=== PATIENT | female | born 1985 | race Caucasian/White ===

== ENCOUNTER 2016-06-11 12:54 | Inpatient (IN) ==
--- NOTE | 2016-06-11 13:09 | Emergency Department Note ---
Disposition Clinical Impression: Atrial fibrillation Disposition: Admitted As Inpatient Condition: Good General Adult HPI - General Chief complaint: ED Arrhythmia/Palpitations Stated complaint: chest pain Time Seen by Provider: 06/11/16 13:02 Source: patient Limitations: no limitations - History of Present Illness Pain Scale: 6 - Related Data Home Medications Medication Instructions Recorded Confirmed Pravastatin Sodium 80 mg PO QPM 12/02/14 06/11/16 GlyBURIDE 5 mg PO QAM 07/20/15 06/11/16 Pioglitazone [Actos] 45 mg PO QAM 07/20/15 06/11/16 Apixaban [Eliquis] 5 mg PO BID 01/01/16 06/11/16 Butalbital/Aspirin/Caffeine 1 cap PO DAILY PRN 01/29/16 06/11/16 [Fiorinal 50-325-40 mg Capsule] Hydrochlorothiazide 50 mg PO QAM 01/29/16 06/11/16 Diclofenac Sodium [Voltaren] 1 appl TP 2-3XD PRN 06/11/16 06/11/16 FLUoxetine HCl [PROzac] 20 mg PO DAILY 06/11/16 06/11/16 Fluticasone Propionate Nasal 100 mcg NS DAILY 06/11/16 06/11/16 [Flonase] Naproxen Sodium [Aleve] 220 mg PO Q12H PRN 06/11/16 06/11/16 Previous Rx's Medication Instructions Recorded Diltiazem CD (24hr) [Cardizem CD] 180 mg PO DAILY #90 cap.er.24h 01/30/16 Allergies Allergy/AdvReac Type Severity Reaction Status Date / Time citalopram [From Celexa] Allergy Hives Verified 05/25/16 05:25 Past Medical History - Past Medical History Medical history: Reports: atrial fibrillation, diabetes, hyperlipidemia, migraine, seizures, other Surgical history: Reports: appendectomy, splenectomy Psychiatric history: Reports: anxiety, depression 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 - Social History Smoking Status: Former smoker Smokeless Tobacco Status: No Alcohol use: Reports: none Drug use: Reports: none Physical Exam - General Limitations: no limitations General appearance: alert, in no apparent distress Course Vital Signs Temperature 98.1 F 06/11/16 13:04 Pulse Rate 172 06/11/16 13:04 Respiratory Rate 18 06/11/16 13:04 Blood Pressure 105/86 06/11/16 13:04 O2 Sat by Pulse Oximetry 98 06/11/16 13:04 Temperature 98.2 F 06/11/16 21:15 Pulse Rate 109 06/11/16 21:15 Respiratory Rate 16 06/11/16 21:15 Blood Pressure 127/71 06/11/16 21:15 O2 Sat by Pulse Oximetry 96 06/11/16 21:37 Oxygen Delivery Oxygen Delivery Room Air Medical Decision Making - Lab Data Result diagrams: 06/11/16 14:23 06/11/16 14:23 Lab Results 06/11/16 06/11/16 06/11/16 Range/Units 14:23 14:23 14:23 WBC 13.2 H (4.3-11.1) K/mcL RBC 5.18 H (3.82-4.97) M/mcL Hgb 14.1 (11.5-15.4) g/dL Hct 44.1 (35.3-44.9) % MCV 85.1 (83.0-100.0) fL MCH 27.2 L (28.0-33.3) pg MCHC 32.0 (31.6-35.5) g/dL RDW 14.1 (11.5-14.5) % Plt Count 622 H (140-400) K/mcL MPV 9.5 (9.4-12.4) fL Immature Gran % 0.4 (0-4) % Seg Neutrophils % 70.0 % Lymphocytes % 19.5 % Monocytes % 8.8 % Eosinophils % 0.8 % Basophils % 0.5 % Neutrophils # 9.3 H (1.6-8.9) K/mcL Lymphocytes # 2.6 (0.6-4.6) K/mcL Monocytes # 1.2 (0.0-1.3) K/mcL Eosinophils # 0.1 (0.0-0.6) K/mcL Basophils # 0.1 (0.0-0.2) K/mcL PT 14.2 H (9.4-12.1) Seconds INR 1.3 Sodium 136 (136-145) mEq/L Potassium 3.6 (3.5-4.5) mEq/L Chloride 102 (98-109) mEq/L Carbon Dioxide 24 (19-29) mEq/L BUN 8 (7-20) mg/dL Creatinine 0.64 (0.57-1.11) mg/dL Est GFR ( Amer) > 60 (> 60) Est GFR (Non-Af Amer) > 60 (> 60) BUN/Creatinine Ratio 13 (6-26) Glucose 171 H (70-99) mg/dL Calculated Osmolality 284 (280-300) Calcium 9.4 (8.6-10.8) mg/dL Total Bilirubin 0.3 (0.2-1.2) mg/dL AST 16 (5-34) Units/L ALT 19 (0-55) Units/L Alkaline Phosphatase 92 (38-126) Units/L Troponin I (0-0.03) ng/mL Serum Total Protein 7.6 (6.0-8.3) g/dL Albumin 3.0 L (3.5-5.0) g/dL Globulin 4.6 H (2.4-3.5) g/dL Albumin/Globulin Ratio 0.7 L (1.1-2.2) 06/11/16 Range/Units 14:23 WBC (4.3-11.1) K/mcL RBC (3.82-4.97) M/mcL Hgb (11.5-15.4) g/dL Hct (35.3-44.9) % MCV (83.0-100.0) fL MCH (28.0-33.3) pg MCHC (31.6-35.5) g/dL RDW (11.5-14.5) % Plt Count (140-400) K/mcL MPV (9.4-12.4) fL Immature Gran % (0-4) % Seg Neutrophils % % Lymphocytes % % Monocytes % % Eosinophils % % Basophils % % Neutrophils # (1.6-8.9) K/mcL Lymphocytes # (0.6-4.6) K/mcL Monocytes # (0.0-1.3) K/mcL Eosinophils # (0.0-0.6) K/mcL Basophils # (0.0-0.2) K/mcL PT (9.4-12.1) Seconds INR Sodium (136-145) mEq/L Potassium (3.5-4.5) mEq/L Chloride (98-109) mEq/L Carbon Dioxide (19-29) mEq/L BUN (7-20) mg/dL Creatinine (0.57-1.11) mg/dL Est GFR ( Amer) (> 60) Est GFR (Non-Af Amer) (> 60) BUN/Creatinine Ratio (6-26) Glucose (70-99) mg/dL Calculated Osmolality (280-300) Calcium (8.6-10.8) mg/dL Total Bilirubin (0.2-1.2) mg/dL AST (5-34) Units/L ALT (0-55) Units/L Alkaline Phosphatase (38-126) Units/L Troponin I 0.00 (0-0.03) ng/mL Serum Total Protein (6.0-8.3) g/dL Albumin (3.5-5.0) g/dL Globulin (2.4-3.5) g/dL Albumin/Globulin Ratio (1.1-2.2) Critical Care Time Critical Care Time: Yes Total Critical Care Time: 30 Attestation: Atrial fibrillation with rapid ventricular response requiring IV Cardizem drip Attestation Statement - Attestation Attestation: I examined this patient and my medical decision-making was reviewed with the GALVANIZER/PA/Advanced Practice Nurse/Resident Physician. I agree with the documented findings, disposition and treatment plan as described except to the extent set forth below. [id number] time provided Patient presents complaining of palpitations. She has a history of intermittent atrial fibrillation and she takes Eliquis. She sees Dr. Calderón from cardiology. Appears in no acute distress on exam
--- NOTE | 2016-06-11 13:14 | Emergency Department Note ---
Disposition Clinical Impression: Atrial fibrillation Qualifiers: Atrial fibrillation type: paroxysmal Qualified Code(s): I48.0 - Paroxysmal atrial fibrillation Disposition: Admitted As Inpatient Condition: Good General Adult HPI - General Stated complaint: chest pain Time Seen by Provider: 06/11/16 13:02 Source: patient Limitations: no limitations Nursing Notes Reviewed: Yes Vital Signs Reviewed: Yes - History of Present Illness HPI Narrative: Ms. Sherwood, a 30yo female, presents from home by POV with blood from bedside, chief complaint: Chest pain. Onset since her ED visit at this facility yesterday. Described as palpitations without pain per se. Past medical history significant paroxysmal atrial fibrillation. Anticoagulated on Eliquis, rate controlled on Cardizem. PMH: Paroxysmal A. fib, hypertension, hyperlipidemia, diabetes type 2. 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 Calderón Maure[facility] cardiology. Admits: Chest palpitations. Denies dyspnea, numbness or tingling, changes in vision, any unilateral or focal weakness, slurring of speech, difficulty chewing, difficulty swallowing. Pain Scale: 6 - Related Data Home Medications Medication Instructions Recorded Confirmed Pravastatin Sodium 80 mg PO QPM 12/02/14 06/11/16 GlyBURIDE 5 mg PO QAM 07/20/15 06/11/16 Pioglitazone [Actos] 45 mg PO QAM 07/20/15 06/11/16 Apixaban [Eliquis] 5 mg PO BID 01/01/16 06/11/16 Butalbital/Aspirin/Caffeine 1 cap PO DAILY PRN 01/29/16 06/11/16 [Fiorinal 50-325-40 mg Capsule] Hydrochlorothiazide 50 mg PO QAM 01/29/16 06/11/16 Diclofenac Sodium [Voltaren] 1 appl TP 2-3XD PRN 06/11/16 06/11/16 FLUoxetine HCl [PROzac] 20 mg PO DAILY 06/11/16 06/11/16 Fluticasone Propionate Nasal 100 mcg NS DAILY 06/11/16 06/11/16 [Flonase] Naproxen Sodium [Aleve] 220 mg PO Q12H PRN 06/11/16 06/11/16 Previous Rx's Medication Instructions Recorded Diltiazem CD (24hr) [Cardizem CD] 180 mg PO DAILY #90 cap.er.24h 01/30/16 Allergies Allergy/AdvReac Type Severity Reaction Status Date / Time citalopram [From Celexa] Allergy Hives Verified 05/25/16 05:25 All systems ED: reviewed and negative except as stated. 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 HEENT: No facial asymmetry. Head is normocephalic and atraumatic. Trachea midline. Cardiovascular: Heart regular rate and rhythm without clicks, rubs, gallops, or murmurs. No JVD. PMI nondisplaced. Bilateral radial and her cells pedis pulses graded 2+. Skin warm and dry. Respiratory: Symmetric chest rise with good respiratory effort. Bilateral breath sounds are clear without wheezing, crackles, or rhonchi. Abdomen: Obese. Bowel sounds present normoactive x-4 quadrants. Abdomen is soft, nondistended, and nontender. No organomegaly noted. Psych: Patient's affect is appropriate for situation. - General Limitations: no limitations General appearance: alert, in no apparent distress Course Course Narrative: Patient took her Cardizem 180 mg by mouth this morning. Patient is well-appearing and relaxing comfortably in bed. During my exam, she was in atrial fibrillation with her only reported symptom being palpitations. EKG demonstrates atrial fibrillation with RVR; rate of 160. We will give Cardizem bolus followed by Cardizem drip. Anticipate admission to hospitalist with cardiology following. Patient spontaneously converted shortly before 3 PM while on Cardizem drip at a rate of 5 milligrams per hour. Repeat EKG captured sinus rhythm with a rate of 98. Vital Signs Temperature 98.1 F 06/11/16 13:04 Pulse Rate 172 06/11/16 13:04 Respiratory Rate 18 06/11/16 13:04 Blood Pressure 105/86 06/11/16 13:04 O2 Sat by Pulse Oximetry 98 06/11/16 13:04 Temperature 98.1 F 06/11/16 16:54 Pulse Rate 103 06/11/16 16:54 Respiratory Rate 16 06/11/16 16:57 Blood Pressure 112/77 06/11/16 16:57 O2 Sat by Pulse Oximetry 95 06/11/16 16:54 Oxygen Delivery Oxygen Delivery Room Air Medical Decision Making - Medical Records Medical records reviewed: Yes I reviewed the patient's medical records. - Lab Data Result diagrams: 06/11/16 14:23 06/11/16 14:23 Lab Results 06/11/16 06/11/16 06/11/16 Range/Units 14:23 14:23 14:23 WBC 13.2 H (4.3-11.1) K/mcL RBC 5.18 H (3.82-4.97) M/mcL Hgb 14.1 (11.5-15.4) g/dL Hct 44.1 (35.3-44.9) % MCV 85.1 (83.0-100.0) fL MCH 27.2 L (28.0-33.3) pg MCHC 32.0 (31.6-35.5) g/dL RDW 14.1 (11.5-14.5) % Plt Count 622 H (140-400) K/mcL MPV 9.5 (9.4-12.4) fL Immature Gran % 0.4 (0-4) % Seg Neutrophils % 70.0 % Lymphocytes % 19.5 % Monocytes % 8.8 % Eosinophils % 0.8 % Basophils % 0.5 % Neutrophils # 9.3 H (1.6-8.9) K/mcL Lymphocytes # 2.6 (0.6-4.6) K/mcL Monocytes # 1.2 (0.0-1.3) K/mcL Eosinophils # 0.1 (0.0-0.6) K/mcL Basophils # 0.1 (0.0-0.2) K/mcL PT 14.2 H (9.4-12.1) Seconds INR 1.3 Sodium 136 (136-145) mEq/L Potassium 3.6 (3.5-4.5) mEq/L Chloride 102 (98-109) mEq/L Carbon Dioxide 24 (19-29) mEq/L BUN 8 (7-20) mg/dL Creatinine 0.64 (0.57-1.11) mg/dL Est GFR ( Amer) > 60 (> 60) Est GFR (Non-Af Amer) > 60 (> 60) BUN/Creatinine Ratio 13 (6-26) Glucose 171 H (70-99) mg/dL Calculated Osmolality 284 (280-300) Calcium 9.4 (8.6-10.8) mg/dL Total Bilirubin 0.3 (0.2-1.2) mg/dL AST 16 (5-34) Units/L ALT 19 (0-55) Units/L Alkaline Phosphatase 92 (38-126) Units/L Troponin I (0-0.03) ng/mL Serum Total Protein 7.6 (6.0-8.3) g/dL Albumin 3.0 L (3.5-5.0) g/dL Globulin 4.6 H (2.4-3.5) g/dL Albumin/Globulin Ratio 0.7 L (1.1-2.2) 06/11/16 Range/Units 14:23 WBC (4.3-11.1) K/mcL RBC (3.82-4.97) M/mcL Hgb (11.5-15.4) g/dL Hct (35.3-44.9) % MCV (83.0-100.0) fL MCH (28.0-33.3) pg MCHC (31.6-35.5) g/dL RDW (11.5-14.5) % Plt Count (140-400) K/mcL MPV (9.4-12.4) fL Immature Gran % (0-4) % Seg Neutrophils % % Lymphocytes % % Monocytes % % Eosinophils % % Basophils % % Neutrophils # (1.6-8.9) K/mcL Lymphocytes # (0.6-4.6) K/mcL Monocytes # (0.0-1.3) K/mcL Eosinophils # (0.0-0.6) K/mcL Basophils # (0.0-0.2) K/mcL PT (9.4-12.1) Seconds INR Sodium (136-145) mEq/L Potassium (3.5-4.5) mEq/L Chloride (98-109) mEq/L Carbon Dioxide (19-29) mEq/L BUN (7-20) mg/dL Creatinine (0.57-1.11) mg/dL Est GFR ( Amer) (> 60) Est GFR (Non-Af Amer) (> 60) BUN/Creatinine Ratio (6-26) Glucose (70-99) mg/dL Calculated Osmolality (280-300) Calcium (8.6-10.8) mg/dL Total Bilirubin (0.2-1.2) mg/dL AST (5-34) Units/L ALT (0-55) Units/L Alkaline Phosphatase (38-126) Units/L Troponin I 0.00 (0-0.03) ng/mL Serum Total Protein (6.0-8.3) g/dL Albumin (3.5-5.0) g/dL Globulin (2.4-3.5) g/dL Albumin/Globulin Ratio (1.1-2.2) - EKG Data EKG #1 EKG attestation: Yes I reviewed and interpreted this EKG. EKG results narrative: EKG dated 06/11/16 at 13:10 interpreted as atrial fibrillation with RVR; rate of 160. Compared to previous dated 05/25/2016 showing sinus rhythm. EKG #2 EKG attestation: Yes I reviewed and interpreted this EKG. EKG results narrative: EKG dated 06/11/16 at 14:54 interpreted as sinus rhythm with rate of 98. Normal intervals. Normal axis. Compared to previous EKG of today approximately 2 hours earlier shows atrial fibrillation with RVR. Patient has converted while on Cardizem drip.
[2016-06-11] MEDS ORDERED: 0.9 % Sodium Chloride 1,000 ML IVC ONE (13:18)
[2016-06-11 14:41] LABS: Basophils # 0.1 K/mcL (0.0-0.2); Basophils % 0.5 %; Eosinophils # 0.1 K/mcL (0.0-0.6); Eosinophils % 0.8 %; Hematocrit 44.1 % (35.3-44.9); Hemoglobin 14.1 g/dL (11.5-15.4); Immature Granulocytes % 0.4 % (0-4); Lymphocytes # 2.6 K/mcL (0.6-4.6); Lymphocytes % 19.5 %; Mean Corpuscular Hemoglobin 27.2 pg (28.0-33.3); Mean Corpuscular Volume 85.1 fL (83.0-100.0); Mean Platelet Volume 9.5 fL (9.4-12.4); Monocytes # 1.2 K/mcL (0.0-1.3); Monocytes % 8.8 %; Neutrophils # 9.3 K/mcL (1.6-8.9); Platelet Count 622 K/mcL (140-400); Red Blood Count 5.18 M/mcL (3.82-4.97); Red Cell Distribution Width 14.1 % (11.5-14.5)
[2016-06-11 14:47] LABS: INR 1.3; Prothrombin Time 14.2 Seconds (9.4-12.1)
[2016-06-11 14:53] LABS: Alanine Aminotransferase 19 Units/L (0-55); Albumin/Globulin Ratio 0.7 (1.1-2.2); Alkaline Phosphatase 92 Units/L (38-126); Aspartate Amino Transferase 16 Units/L (5-34); BUN/Creatinine Ratio 13 (6-26); Bilirubin,Total 0.3 mg/dL (0.2-1.2); Blood Urea Nitrogen 8 mg/dL (7-20); Calcium 9.4 mg/dL (8.6-10.8); Carbon Dioxide 24 mEq/L (19-29); Chloride 102 mEq/L (98-109); Globulin 4.6 g/dL (2.4-3.5); Glucose 171 mg/dL (70-99); Osmolality,Calculated 284 (280-300); Potassium 3.6 mEq/L (3.5-4.5); Sodium 136 mEq/L (136-145); Total Protein 7.6 g/dL (6.0-8.3); eGFR For African Americans > 60 (> 60); eGFR For Non-African Americans > 60 (> 60)
[2016-06-11] MEDS ORDERED: Acetaminophen 325 MG TABLET PO PRN (18:09)
[2016-06-11] MEDS ORDERED: Naloxone 0.4 MG/ML INJ IVP PRN (18:09)
[2016-06-11] MEDS ORDERED: Ondansetron 4 MG/2 ML VIAL IVP PRN (18:09)
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
[2016-06-11] MEDS ORDERED: *HR* Dextrose 50 % in Water (Syg) 50 ML SYRINGE IVP PRN (20:58)
[2016-06-11] MEDS ORDERED: D5% in Water 1,000 ML IV PRN (20:58)
[2016-06-11] MEDS ORDERED: Dextrose Gel 15 GM PO PRN ×2 (20:58)
[2016-06-12 06:13] LABS: Basophils # 0.1 K/mcL (0.0-0.2); Basophils % 0.8 %; Eosinophils # 0.2 K/mcL (0.0-0.6); Eosinophils % 1.5 %; Hematocrit 39.6 % (35.3-44.9); Hemoglobin 12.8 g/dL (11.5-15.4); Immature Granulocytes % 0.5 % (0-4); Lymphocytes # 2.8 K/mcL (0.6-4.6); Lymphocytes % 23.6 %; Mean Corpuscular HGB Conc 32.3 g/dL (31.6-35.5); Mean Corpuscular Hemoglobin 27.6 pg (28.0-33.3); Mean Corpuscular Volume 85.5 fL (83.0-100.0); Mean Platelet Volume 9.8 fL (9.4-12.4); Monocytes # 1.2 K/mcL (0.0-1.3); Monocytes % 10.2 %; Neutrophils # 7.6 K/mcL (1.6-8.9); Platelet Count 538 K/mcL (140-400); Red Blood Count 4.63 M/mcL (3.82-4.97); Red Cell Distribution Width 14.6 % (11.5-14.5); Segmented Neutrophils % 63.4 %
[2016-06-12 06:19] LABS: Hemoglobin A1C 8.5 %
[2016-06-12 06:24] LABS: BUN/Creatinine Ratio 15 (6-26); Blood Urea Nitrogen 11 mg/dL (7-20); Calcium 9.2 mg/dL (8.6-10.8); Carbon Dioxide 25 mEq/L (19-29); Chloride 99 mEq/L (98-109); Chol/HDL Ratio 6.4 (0-4.9); Cholesterol 204 mg/dL (< 200); Glucose 185 mg/dL (70-99); HDL Cholesterol 32 mg/dL (40-59); LDL Cholesterol,Calculated 151 mg/dL (0-99); Magnesium 1.2 mg/dL (1.6-2.6); Osmolality,Calculated 282 (280-300); Potassium 3.4 mEq/L (3.5-4.5); Sodium 134 mEq/L (136-145); Triglycerides 104 mg/dL (< 150); eGFR For African Americans > 60 (> 60); eGFR For Non-African Americans > 60 (> 60)
--- NOTE | 2016-06-12 08:42 | Cardiology Consult Note ---
<Brendon Dawn - Last Filed: 06/12/16 09:37> Date of Encounter: 06/12/16 Time of Encounter: 08:37 Assessment and Plan (1) Atrial fibrillation with RVR Current Visit: No Status: Acute Atrial fibrillation with RVR with HR up to 160 bpm. Now NSR after receiving IV cardizem bilus and IV gtt. Convert back to oral cardizem. Start 240 mg daily. Continue eliquis. We will have her follow with Dr. Osmin Dent to discuss ablation again. She is willing to re-consider. Discussion w patient/family: The assessment and plan as outlined above was discussed with the patient and/or family members who expressed understanding and agreement. All questions were answered. Thank you for involving us in the care of your patient. Please call with any questions. History of Present Illness Consult date: 06/12/16 Requesting physician: Isai Scott Consult reason: afib with RVR Chief complaint: Palpitations, chest discomfort, SOB History of present illness: Ms. Sherwood is a 30 year old female who presented yesterday with, palpitations, SOB and left uper chest discomfort starting at rest. She presented to the ER and was found to have atrial fibrillation with RVR. She was started on IV cardizem and converted to NSR. Symptoms were relieved once heart rate was controlled. Past medical history includes atrial fibrillation with RVR on eliquis, diabetes type II, and thrombocytosis from splenectomy. She follows with [place] [facility] and discussed ablation with Dr. Osmin Dent in the past. She declined previously. She denies missed doses of cardizem. C/o sinus congestion over past week. Past Med Surg Social Fam HX - Past Medical History Medical history: atrial fibrillation, diabetes, hyperlipidemia, migraine, seizures, other Psychiatric history: anxiety, depression - Past Surgical History Surgical History: appendectomy, splenectomy - Social History Smoking Status: Former smoker Smokeless Tobacco Status: No Alcohol use: none Drug use: none - Family History Mother Adopted: No Living Status: Still Living Hx Family Cardiac Disorders: Yes (HTN) Hx Family Endocrine Disorder: Yes (DM) Father Hx Family Cardiac Disorders: Yes (CHF) Brother Hx Family Cardiac Disorders: Yes (A. FIB) Hx Family Endocrine Disorder: Yes (DM) Medications and Allergies Pravastatin Sodium 80 mg PO QPM 12/02/14 [History] GlyBURIDE 5 mg PO QAM 07/20/15 [History] Pioglitazone [Actos] 45 mg PO QAM 07/20/15 [History] Apixaban [Eliquis] 5 mg PO BID 01/01/16 [History] Butalbital/Aspirin/Caffeine [Fiorinal 50-325-40 mg Capsule] 1 cap PO DAILY PRN 01/29/16 [History] Hydrochlorothiazide 50 mg PO QAM 01/29/16 [History] Diltiazem CD (24hr) [Cardizem CD] 180 mg PO DAILY #90 cap.er.24h 01/30/16 [Rx] Diclofenac Sodium [Voltaren] 1 appl TP 2-3XD PRN 06/11/16 [History] FLUoxetine HCl [PROzac] 20 mg PO DAILY 06/11/16 [History] Fluticasone Propionate Nasal [Flonase] 100 mcg NS DAILY 06/11/16 [History] Naproxen Sodium [Aleve] 220 mg PO Q12H PRN 06/11/16 [History] Allergies citalopram [From Celexa] Allergy (Verified 05/25/16 05:25) Hives All Systems Review: A 10-system review of systems was performed and is negative for pertinent findings except as documented above in the HPI. Physical Examination Vital Signs, Last 4 Hours Temp Pulse Resp BP Pulse Ox 06/12/16 07:45 97.9 F 95 16 98/65 94 L General: Conversant, No Apparent Distress, Other HEENT: Atraumatic, Normocephaly, Mucus Membranes Moist Neck: No JVD, Normal carotid pulses Cardiac: Reg Rate and Rhythm, Normal S1 and S2, No Murmur Lungs: Normal Breath Sounds, No Wheeze, Rales, Rhonchi Neuro: Alert and responsive, No focal deficits noted Abdomen: Soft, Non-Tender Skin: No rashes noted on visualized skin Musculoskeletal: No Chest Wall Tenderness Extremities: No Clubbing, No Cyanosis, No Edema, Normal Pulses Results 06/12/16 04:45 06/12/16 04:45 Lab Results 06/12/16 06/12/16 04:45 04:45 WBC 11.9 H Hgb 12.8 Hct 39.6 Plt Count 538 H Sodium 134 L Potassium 3.4 L Chloride 99 Carbon Dioxide 25 BUN 11 Creatinine 0.73 Glucose 185 H Calcium 9.2 Magnesium 1.2 L - Imaging and Cardiology Echo: report reviewed (01/30/16- EF 60-65%, no significant valvular disease, normal atrial size.) - EKG Interpretation EKG results cardiology: personally reviewed (ATrial fibrillation with RVR, HR 160 bpm, no ST changes.) Consult Discharge Plan - Plan Referrals: Racheal Vazquez CNP [Primary Care Provider] - 06/17/16 1:30 pm Osmin Dent MD [Partnered Physician] - 07/01/16 9:00 am <Larisa Pierson - Last Filed: 06/12/16 13:59> Date of Encounter: 06/12/16 Assessment and Plan Discussion w patient/family: The assessment and plan as outlined above was discussed with the patient and/or family members who expressed understanding and agreement. All questions were answered. Thank you for involving us in the care of your patient. Please call with any questions. History of Present Illness History of present illness: Ms. Sherwood is a 30 year old female All Systems Review: A 10-system review of systems was performed and is negative for pertinent findings except as documented above in the HPI. Results 06/12/16 04:45 06/12/16 04:45 - Attending Attestation I examined this patient and my medical decision-making was reviewed with the [employer] SUPERVISOR/PA/Advanced Practice Nurse/Resident Physician. I agree with the documented findings, disposition and treatment plan. Ms. Sherwood presents with AF RVR in setting of URI type symptoms. She has since converted back to NSR. She is maintained on eliquis as an outpatient. We will adjust her cardizem and have her follow up with her primary sustainable development policy analyst, Dr. Calderón. She denies possibility of . We will sign off. Please call with questions.
[2016-06-12] MEDS ORDERED: (Diclofenac Sodium [Voltaren] 1 APPL) TP PRN (09:13)
[2016-06-12] MEDS ORDERED: BUTALBITAL PO PRN (09:13)
[2016-06-12] MEDS ORDERED: ASPIRIN PO PRN (09:13)
[2016-06-12] MEDS ORDERED: CAFFEINE PO PRN (09:13)
[2016-06-12] MEDS: Diltiazem CD (24hr) 240 MG CAPSULE PO SCH (09:50)
[2016-06-12] MEDS: FLUoxetine 20 MG CAPSULE PO SCH (09:50)
[2016-06-12] MEDS: APIXABAN 5 MG TABLET PO SCH ×2 (09:51→21:48)
[2016-06-12] MEDS: Fluticasone Propionate Nasal 50 MCG/SPRAY BOTTLE NS SCH (09:51)
[2016-06-12] MEDS: Insulin LISPRO 300 UNITS/3 ML VIAL SQ SCH ×3 (09:53→17:07)
--- NOTE | 2016-06-12 17:06 | Internal Med Progress Note ---
Date of Encounter: 06/12/16 Time of Encounter: 09:00 - Assessment and plan (1) Paroxysmal atrial fibrillation with rapid ventricular response Current Visit: No Status: Acute Assessment and plan: Converted to NSR now. Continue cardizem for rate control and Eliquis for anticoagulation. F/U with cardio as outpatient. (2) Essential hypertension Current Visit: No Status: Chronic Assessment and plan: Stable, cont home med (3) Type 2 diabetes mellitus Current Visit: No Status: Chronic Assessment and plan: Cover by sliding scale. Qualifiers: Diabetes mellitus complication status: without complication Diabetes mellitus nursing home insulin use: without nursing home use Qualified Code(s): E11.9 - Type 2 diabetes mellitus without complications (4) DVT prophylaxis Current Visit: Yes Status: Acute Assessment and plan: Pt is young, encourage ambulating. Expect discharge soon, no anticoagulation. (5) Morbid obesity Current Visit: Yes Status: Acute Assessment and plan: Need lifestyle modification as outpatient. Qualifiers: Obesity type: due to excess calories Qualified Code(s): E66.01 - Morbid ( severe) obesity due to excess calories - Time Spent With Patient 25 - 35 minutes - Subjective Interval history: Pt is a 30 yoF admitted as A Fib with RVR. Her past medical Hx is significant for PAF. Pt was seen and examined. Denies chest pain, SOB, palpitation. HR converted to NSR. HR 90-100. Cardizem drip stopped, change to cardizem CD 240mg po qd. Expect d/c tomorrow if HR and BP stable. Cardiology consult appreciated. - Constitutional Vitals: Temp Pulse Resp BP Pulse Ox 97.4 F L 94 16 131/85 94 L 06/12/16 15:36 06/12/16 15:36 06/12/16 15:36 06/12/16 15:36 06/12/16 15:36 General appearance: Present: cooperative, A&O X 3, morbidly obese, pleasant, no acute distress, answers questions appropriately - Head Head exam: Present: atraumatic, normocephalic - Eye Eye exam: Present: PERRL, conjuntiva pink, sclera anicteric Pupils: Present: PERRL - Neck Neck exam general surgery: Present: supple, trachea midline. Absent: lymphadenopathy - Respiratory Respiratory exam: Present: CTAB. Absent: accessory muscle use, rales, rhonchi, wheezes - Cardiovascular Cardiovascular exam: Present: RRR, +S1, +S2. Absent: diastolic murmur, gallop, rubs, systolic murmur - GI/Abdominal GI/Abdominal exam: Present: normal bowel sounds, soft, no peritoneal signs. Absent: distended, tenderness - Extremities Exam Extremities exam: Present: warm, radial pulses palpable and symetrical. Absent : calf tenderness, cyanotic, pedal edema - Neurological Exam Neurological exam: Present: CN II-XII intact, oriented X3, no focal deficits. Absent: pronater drift, facial droop, speech deficit - Skin Skin exam: Present: dry, intact Internal Medicine: Result - Labs CBC & Chem 7: 06/12/16 04:45 06/12/16 04:45 - ABG Interpretation ABG results: PT/INR, D-dimer PT 14.2 Seconds (9.4-12.1) H 06/11/16 14:23 - VTE Reasons for not Prescribing Prophylaxis: Not indicated-Anticoagulated or INR therapeutic Consult Discharge Plan - Plan Referrals: Racheal Vazquez CNP [Primary Care Provider] - 06/17/16 1:30 pm Osmin Dent MD [Partnered Physician] - 07/01/16 9:00 am
--- NOTE | 2016-06-12 19:44 | Electrocardiograph Report ---
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
--- NOTE | 2016-06-12 19:46 | Electrocardiograph Report ---
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
[2016-06-12] MEDS ORDERED: Insulin LISPRO 300 UNITS/3 ML VIAL SQ SCH (21:00)
[2016-06-13 05:48] LABS: BUN/Creatinine Ratio 22 (6-26); Blood Urea Nitrogen 14 mg/dL (7-20); Calcium 9.1 mg/dL (8.6-10.8); Carbon Dioxide 22 mEq/L (19-29); Chloride 103 mEq/L (98-109); Glucose 166 mg/dL (70-99); Osmolality,Calculated 286 (280-300); Potassium 3.6 mEq/L (3.5-4.5); Sodium 136 mEq/L (136-145); eGFR For African Americans > 60 (> 60); eGFR For Non-African Americans > 60 (> 60)
[2016-06-13 05:59] LABS: Basophils # 0.1 K/mcL (0.0-0.2); Basophils % 0.7 %; Eosinophils # 0.2 K/mcL (0.0-0.6); Eosinophils % 1.8 %; Hemoglobin 12.9 g/dL (11.5-15.4); Immature Granulocytes % 0.3 % (0-4); Lymphocytes # 2.8 K/mcL (0.6-4.6); Lymphocytes % 21.9 %; Mean Corpuscular HGB Conc 33.1 g/dL (31.6-35.5); Mean Corpuscular Hemoglobin 28.2 pg (28.0-33.3); Mean Corpuscular Volume 85.2 fL (83.0-100.0); Mean Platelet Volume 10.1 fL (9.4-12.4); Monocytes # 1.3 K/mcL (0.0-1.3); Monocytes % 10.3 %; Neutrophils # 8.4 K/mcL (1.6-8.9); Platelet Count 535 K/mcL (140-400); Red Blood Count 4.58 M/mcL (3.82-4.97); Red Cell Distribution Width 14.5 % (11.5-14.5)
[2016-06-13] MEDS ORDERED: Magnesium Sulfate 2 GM in D5% in Water 100 ML IVPB ONE (07:55)
[2016-06-13] MEDS: APIXABAN 5 MG TABLET PO SCH (08:44)
[2016-06-13] MEDS: FLUoxetine 20 MG CAPSULE PO SCH (08:44)
[2016-06-13] MEDS: Diltiazem CD (24hr) 240 MG CAPSULE PO SCH (08:44)
[2016-06-13] MEDS: Fluticasone Propionate Nasal 50 MCG/SPRAY BOTTLE NS SCH (08:45)
[2016-06-13] MEDS: Insulin LISPRO 300 UNITS/3 ML VIAL SQ SCH ×2 (08:45→12:05)
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
[2016-06-13 12:07] VITALS: BP 111/74
--- NOTE | 2016-06-14 11:20 | Electrocardiograph Report ---
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
== END 2016-06-13 13:12 | disposition home or self-care (01) | DRG 201 ==
LOC: EMEROO 12:54 → 3BNU 12:54 → SUATTDRO 16:23 → 3BNU 16:58
PROVIDERS: ADMIT Internal Medicine; ATTEND Internal Medicine

== ENCOUNTER 2016-08-20 02:28 | Inpatient (IN) ==
[2016-08-20 02:50] LABS: Bilirubin,Urine Negative (Negative); Blood,Urine Negative (Negative); Clarity,Urine Clear (Clear); Color,Urine Yellow (Yellow); Glucose,Urine (UA) >=1000 mg/dL (Normal); Ketones,Urine Negative (Negative); Leukocyte Esterase,Urine Negative (Negative); Nitrite,Urine Negative (Negative); Protein,Urine Negative (Neg-Trace); Specific Gravity,Urine 1.018 (1.010-1.025); Urobilinogen,Urine Normal (Normal)
[2016-08-20] MEDS ORDERED: 0.9 % Sodium Chloride 1,000 ML IVC ONE ×2 (02:54→04:30)
[2016-08-20 03:13] LABS: Basophils # 0.1 K/mcL (0.0-0.2); Basophils % 0.8 %; Eosinophils # 0.3 K/mcL (0.0-0.6); Eosinophils % 2.3 %; Hematocrit 42.7 % (35.3-44.9); Hemoglobin 13.8 g/dL (11.5-15.4); Immature Granulocytes % 0.3 % (0-4); Immature Platelets 2.6 % (1.1-6.1); Lymphocytes % 26.9 %; Mean Corpuscular HGB Conc 32.3 g/dL (31.6-35.5); Mean Corpuscular Hemoglobin 27.8 pg (28.0-33.3); Mean Corpuscular Volume 85.9 fL (83.0-100.0); Mean Platelet Volume 9.4 fL (9.4-12.4); Monocytes # 1.7 K/mcL (0.0-1.3); Monocytes % 11.4 %; Neutrophils # 8.6 K/mcL (1.6-8.9); Platelet Count 516 K/mcL (140-400); Red Blood Count 4.97 M/mcL (3.82-4.97); Red Cell Distribution Width 14.9 % (11.5-14.5); Segmented Neutrophils % 58.3 %
[2016-08-20 03:28] LABS: Alanine Aminotransferase 21 Units/L (0-55); Albumin 3.3 g/dL (3.5-5.0); Albumin/Globulin Ratio 0.8 (1.1-2.2); Alkaline Phosphatase 81 Units/L (38-126); Aspartate Amino Transferase 18 Units/L (5-34); BUN/Creatinine Ratio 19 (6-26); Bilirubin,Total 0.2 mg/dL (0.2-1.2); Blood Urea Nitrogen 15 mg/dL (7-20); Calcium 9.7 mg/dL (8.6-10.8); Carbon Dioxide 20 mEq/L (19-29); Chloride 104 mEq/L (98-109); Globulin 4.4 g/dL (2.4-3.5); Glucose 317 mg/dL (70-99); Osmolality,Calculated 291 (280-300); Potassium 4.4 mEq/L (3.5-4.5); Sodium 134 mEq/L (136-145); Total Protein 7.7 g/dL (6.0-8.3); eGFR For African Americans > 60 (> 60); eGFR For Non-African Americans > 60 (> 60)
[2016-08-20 04:10] LABS: Prothrombin Time 10.7 Seconds (9.4-12.1)
[2016-08-20 04:12] LABS: Activated Partial Thrombo Time 31.9 Seconds (26.0-36.0)
--- NOTE | 2016-08-20 04:24 | Emergency Department Note ---
Disposition Clinical Impression: Atrial fibrillation with RVR Disposition: Admitted As Inpatient Condition: Fair Referrals: Marie Velez, [employer] [Primary Care Provider] - Forms: ED Satisfaction Letter Time of Disposition: 05:41 Chest Pain HPI - General Chief Complaint: ED Chest Pain Stated Complaint: C/P Time Seen by Provider: 08/20/16 04:19 Source: patient Limitations: no limitations Vital Signs Reviewed: Yes Nursing Notes Reviewed: Yes - History of Present Illness HPI Narrative: 30 year old female with HX of Paroxysmal atrial fibrillation presents to the ED with increased palpitations. PAinet states she was at home and had a coughing fit and then started to feel increased palpitations. Patient states she follows with Dr. louise and Dr. ngo and has been on mutliple medications to try and control her sinus tachycardia. She was scheduled to possibly be admitted this week for treatment with romidol or ablation therapy. Opal states she feels light headed and shortness of breath with it as well. Opal states that the last time this happened was about 6 months ago and she converted out of the rhythm. She has not need shock therapy in the past. Upon arrival she was tachcardic to the 200s. Opal is currently on cardizem and metroprolol for therapy. Severity scale (1-10): 6 - Related Data Home Medications Medication Instructions Recorded Confirmed Pravastatin Sodium 80 mg PO QPM 12/02/14 08/20/16 GlyBURIDE 5 mg PO BID 07/20/15 08/20/16 Pioglitazone [Actos] 45 mg PO QAM 07/20/15 08/20/16 Apixaban [Eliquis] 5 mg PO BID 01/01/16 08/20/16 Diclofenac Sodium [Voltaren] 1 appl TP 2-3XD PRN 06/11/16 08/20/16 FLUoxetine HCl [Prozac] 30 mg PO DAILY 06/11/16 08/20/16 Naproxen Sodium [Aleve] 220 mg PO Q12H PRN 06/11/16 08/20/16 Previous Rx's Medication Instructions Recorded Diltiazem CD (24hr) [Cardizem CD] 240 mg PO DAILY #30 cap.er.24h 06/13/16 Metoprolol [Lopressor] 25 mg PO BID #60 tablet 06/13/16 Albuterol Sulfate [Albuterol 2 puff IH QID PRN #1 hfa.aer.ad 07/20/16 Inhaler] Oxycodone HCl/Acetaminophen 1 each PO Q4-6H PRN #40 tablet 07/23/16 [Percocet 5-325 mg Tablet] Allergies Allergy/AdvReac Type Severity Reaction Status Date / Time citalopram [From Celexa] Allergy Hives Verified 08/20/16 02:29 Constitutional: Denies: fever, chills, weakness, weight change Eyes: Denies: eye pain, eye discharge, vision change ENT ED: Denies: ear pain, throat pain, dental pain, hearing loss, epistaxis, congestion, dysphagia Cardiovascular: Reports: chest pain, palpitations. Denies: dyspnea on exertion , edema, syncope Respiratory: Reports: dyspnea. Denies: cough, wheezes, hemoptysis, stridor Gastrointestinal: Denies: abdominal pain, nausea, vomiting, diarrhea, constipation, hematemesis, melena, hematochezia Genitourinary: Denies: dysuria, frequency, hematuria, discharge Musculoskeletal: Denies: back pain, neck pain, arthralgia, myalgia Integumentary: Denies: rash, abrasion, lesions Neurological: Denies: headache, weakness, numbness, paresthesias, confusion, abnormal gait, vertigo Psychiatric: Denies: anxiety, depression, suicidal thoughts, homicidal thoughts , auditory hallucinations, visual hallucinations Endocrine: Denies: fatigue Hematological/Lymphatic: Denies: easy bleeding, easy bruising Allergic/Immunologic: Denies: facial swelling, urticaria Chest Pain PMH - Past Medical History Medical history: Reports: atrial fibrillation, diabetes, GERD, hyperlipidemia, migraine, seizures, other Surgical history: Reports: appendectomy, splenectomy Psychiatric history: Reports: anxiety, depression [employer] DES[employer] history: Reports: non-contributory - Social History Smoking Status: Former smoker Alcohol use: Reports: rarely Drug use: Reports: none Physical Exam - General Limitations: no limitations General appearance: alert - Head Head exam: atraumatic, normocephalic, normal inspection - Eye Eye exam: Present: normal appearance, PERRL, EOMI - Expanded Eye Exam Pupils: Left: reactive - ENT ENT exam: normal exam, normal oropharynx, mucous membranes moist - Expanded ENT Exam External ear exam: Present: normal external inspection Mouth exam: Present: normal external inspection Teeth exam: Present: normal inspection Throat exam: Present: normal inspection - Neck Neck exam: Present: normal inspection, full ROM, trachea midline - Chest Chest inspection: Present: normal inspection, symmetric chest wall rise - Respiratory Respiratory exam: Present: normal lung sounds bilaterally - Cardiovascular Cardiovascular exam: Present: tachycardia, irregular rhythm, normal heart sounds - Abdominal Exam Abdominal exam: Present: soft, Non-Tender. Absent: tenderness, distention, guarding, rebound, rigidity - Extremities Exam Extremities exam: Present: normal inspection, full ROM. Absent: tenderness, pedal edema - Expanded Upper Extremity Exam Shoulder exam: Present: normal inspection, full ROM Arm exam: Present: normal inspection, full ROM Elbow exam: Present: normal inspection, full ROM Forearm/Wrist exam: Present: normal inspection, full ROM Hand exam: Present: normal inspection, full ROM Vascular exam: Normal: capillary refill, radial pulse - Expanded Lower Extremity Exam Hip/Pelvis exam: Present: normal inspection, full ROM Upper leg exam: Present: normal inspection, full ROM Knee exam: Present: normal inspection, full ROM Lower leg exam: Present: normal inspection, full ROM Ankle exam: Present: normal inspection, full ROM Foot/toe exam: Present: normal inspection, full ROM Neurovascular/Tendon exam: Absent: motor deficit, sensory deficit, tendon deficit - Back Exam Back exam: Present: normal inspection, full ROM. Absent: tenderness - Neurological Exam Neurological exam: Present: alert, oriented X3 - Expanded Neurological Exam Patient oriented to: Present: person, place, time Coma Scale Eye Opening: Spontaneous Coma Scale Motor Response: Obeys Commands Coma Scale Verbal Response: Oriented Coma Scale Total: 15 - Psychiatric Psychiatric exam: Present: normal affect, normal mood - Skin Skin exam: Present: warm, dry, intact, normal color Course Course Narrative: we will do a cardizem drip and bolus and re--evaluate. We will admit to medicine. - Reevaluation(s) Reevaluation #1: patinet rate is still elevated at 180s, wilg dariusz another dose of cardizem. Time: 04:30 Reevaluation #2: patinet HR is now in the 80s. we will admit to [facility]. Time: 05:00 - Consultations Consultation #1: discussed case with Dr. darby and he accepts patient for admission. Time: 05:40 Vital Signs Temperature 97.7 F 08/20/16 02:29 Pulse Rate 108 08/20/16 02:29 Respiratory Rate 20 08/20/16 02:29 Blood Pressure 112/81 08/20/16 02:29 O2 Sat by Pulse Oximetry 97 08/20/16 02:29 Temperature 97.7 F 08/20/16 02:29 Pulse Rate 112 08/20/16 05:15 Respiratory Rate 16 08/20/16 05:15 Blood Pressure 83/68 08/20/16 05:15 O2 Sat by Pulse Oximetry 97 08/20/16 05:15 Oxygen Delivery Oxygen Delivery Room Air Chest Pain - Lab Data Result diagrams: 08/20/16 03:03 08/20/16 03:03 Lab Results 08/20/16 08/20/16 08/20/16 Range/Units 02:41 02:41 03:03 WBC 14.7 H (4.3-11.1) K/mcL RBC 4.97 (3.82-4.97) M/mcL Hgb 13.8 (11.5-15.4) g/dL Hct 42.7 (35.3-44.9) % MCV 85.9 (83.0-100.0) fL MCH 27.8 L (28.0-33.3) pg MCHC 32.3 (31.6-35.5) g/dL RDW 14.9 H (11.5-14.5) % Plt Count 516 H (140-400) K/mcL MPV 9.4 (9.4-12.4) fL Immature Gran % 0.3 (0-4) % Seg Neutrophils % 58.3 % Lymphocytes % 26.9 % Monocytes % 11.4 % Eosinophils % 2.3 % Basophils % 0.8 % Neutrophils # 8.6 (1.6-8.9) K/mcL Lymphocytes # 4.0 (0.6-4.6) K/mcL Monocytes # 1.7 H (0.0-1.3) K/mcL Eosinophils # 0.3 (0.0-0.6) K/mcL Basophils # 0.1 (0.0-0.2) K/mcL Immature Plt Fraction 2.6 (1.1-6.1) % PT (9.4-12.1) Seconds INR APTT (26.0-36.0) Seconds Sodium (136-145) mEq/L Potassium (3.5-4.5) mEq/L Chloride (98-109) mEq/L Carbon Dioxide (19-29) mEq/L BUN (7-20) mg/dL Creatinine (0.57-1.11) mg/dL Est GFR ( Amer) (> 60) Est GFR (Non-Af Amer) (> 60) BUN/Creatinine Ratio (6-26) Glucose (70-99) mg/dL Calculated Osmolality (280-300) Calcium (8.6-10.8) mg/dL Total Bilirubin (0.2-1.2) mg/dL AST (5-34) Units/L ALT (0-55) Units/L Alkaline Phosphatase (38-126) Units/L Troponin I (0-0.03) ng/mL Serum Total Protein (6.0-8.3) g/dL Albumin (3.5-5.0) g/dL Globulin (2.4-3.5) g/dL Albumin/Globulin Ratio (1.1-2.2) Urine Color Yellow (Yellow) Urine Clarity Clear (Clear) Urine pH 6.0 (5.0-8.0) pH Units Ur Specific [place] 1.018 (1.010-1.025) Urine Protein Negative (Neg-Trace) mg/dL Urine Glucose (UA) >=1000 H (Normal) mg/dL Urine Ketones Negative (Negative) mg/dL Urine Blood Negative (Negative) Urine Nitrite Negative (Negative) Urine Bilirubin Negative (Negative) Urine Urobilinogen Normal (Normal) mg/dL Ur Leukocyte Esterase Negative (Negative) Ur Culture Indicated? NO (NO) Urine Test Negative (Negative) 08/20/16 08/20/16 08/20/16 Range/Units 03:03 03:03 03:54 WBC (4.3-11.1) K/mcL RBC (3.82-4.97) M/mcL Hgb (11.5-15.4) g/dL Hct (35.3-44.9) % MCV (83.0-100.0) fL MCH (28.0-33.3) pg MCHC (31.6-35.5) g/dL RDW (11.5-14.5) % Plt Count (140-400) K/mcL MPV (9.4-12.4) fL Immature Gran % (0-4) % Seg Neutrophils % % Lymphocytes % % Monocytes % % Eosinophils % % Basophils % % Neutrophils # (1.6-8.9) K/mcL Lymphocytes # (0.6-4.6) K/mcL Monocytes # (0.0-1.3) K/mcL Eosinophils # (0.0-0.6) K/mcL Basophils # (0.0-0.2) K/mcL Immature Plt Fraction (1.1-6.1) % PT 10.7 (9.4-12.1) Seconds INR 1.0 APTT 31.9 (26.0-36.0) Seconds Sodium 134 L (136-145) mEq/L Potassium 4.4 (3.5-4.5) mEq/L Chloride 104 (98-109) mEq/L Carbon Dioxide 20 (19-29) mEq/L BUN 15 (7-20) mg/dL Creatinine 0.78 (0.57-1.11) mg/dL Est GFR ( Amer) > 60 (> 60) Est GFR (Non-Af Amer) > 60 (> 60) BUN/Creatinine Ratio 19 (6-26) Glucose 317 H (70-99) mg/dL Calculated Osmolality 291 (280-300) Calcium 9.7 (8.6-10.8) mg/dL Total Bilirubin 0.2 (0.2-1.2) mg/dL AST 18 (5-34) Units/L ALT 21 (0-55) Units/L Alkaline Phosphatase 81 (38-126) Units/L Troponin I 0.00 (0-0.03) ng/mL Serum Total Protein 7.7 (6.0-8.3) g/dL Albumin 3.3 L (3.5-5.0) g/dL Globulin 4.4 H (2.4-3.5) g/dL Albumin/Globulin Ratio 0.8 L (1.1-2.2) Urine Color (Yellow) Urine Clarity (Clear) Urine pH (5.0-8.0) pH Units Ur Specific [place] (1.010-1.025) Urine Protein (Neg-Trace) mg/dL Urine Glucose (UA) (Normal) mg/dL Urine Ketones (Negative) mg/dL Urine Blood (Negative) Urine Nitrite (Negative) Urine Bilirubin (Negative) Urine Urobilinogen (Normal) mg/dL Ur Leukocyte Esterase (Negative) Ur Culture Indicated? (NO) Urine Test (Negative) - EKG Data EKG attestation: Yes I reviewed and interpreted this EKG. EKG results narrative: atrial fibrillation with rate of 201. NO STEMI. 0232 Attestation Statement - Attestation Attestation: I personally interviewed and examined this patient and my medical decision- making was reviewed with the ED Resident Physician, Dr. Keller. I agree with the documented findings, disposition and treatment plan as described except to the extent set forth below. Patient is a 30-year-old white female with a history of chronic A. fib who comes in with complaints of chest tightness and palpitations who is in atrial fibrillation with RVR. Patient with stable blood pressure on arrival and in no acute distress clinically. Patient is on multiple medications but has had numerous recurrences of A. fib with RVR in the past and is established with cardiology here at [place]. Agree with physical exam findings documented. EKG shows atrial fibrillation with RVR with no acute ST-T wave changes. We were able to be controlled patient on Cardizem and is hemodynamically stable at this time and heart rate in the 80s. Patient remains in atrial fibrillation. Patient is anticoagulated. Patient will be admitted for further evaluation and treatment.
[2016-08-20] MEDS ORDERED: Acetaminophen 325 MG TABLET PO PRN (07:40)
[2016-08-20] MEDS ORDERED: Naloxone 0.4 MG/ML INJ IVP PRN (07:40)
--- NOTE | 2016-08-20 09:00 | Internal Med History&Physical ---
Date of Encounter: 08/20/16 Time of Encounter: 07:30 Assessment and Plan (1) Atrial fibrillation with RVR Current visit: Yes Status: Acute Patient with A. fib with RVR. Started on Cardizem drip intravenously. We will continue to titrate control heart rate. Also discussed with cardiology. They will consult in the care of this patient. Patient is already anticoagulated. We will follow cardiology recommendations. High risk for complications due to use of IV Cardizem drip. (2) Type 2 diabetes mellitus Current visit: Yes Status: Chronic Monitor blood sugars. Check A1c level. We will start patient on sliding scale insulin. Diabetic diet. Qualifiers: Diabetes mellitus complication status: with hyperglycemia Diabetes mellitus terminologist insulin use: without senior care use Qualified Code(s): E11.65 - Type 2 diabetes mellitus with hyperglycemia (3) Hyperlipidemia Current visit: Yes Status: Chronic Continue statin Qualifiers: Hyperlipidemia type: pure hypercholesterolemia Qualified Code(s): E78.00 - Pure hypercholesterolemia, unspecified; E78.0 - Pure hypercholesterolemia (4) Morbid obesity Current visit: No Status: Chronic Qualifiers: Obesity type: due to excess calories Qualified Code(s): E66.01 - Morbid ( severe) obesity due to excess calories (5) Essential hypertension Current visit: No Status: Chronic Blood pressure is well controlled. Continue to monitor blood pressure and continue antihypertensives. Will hold antihypertensives for systolic blood pressure less than 100 due to use of IV Cardizem drip. Internal Medicine - H&P: HPI Chief complaint: A. fib with RVR Admitted From: Emergency Dept Plans for Post Hospital Care: Home History of present illness: Ms. Sherwood is a 30 year old female with history of paroxysmal A. fib, diabetes mellitus type 2, hyperlipidemia presented to the ER with complaints of recurrent episode of atrial fibrillation with palpitations. She says she was feeling fine until last night when she developed a sudden bout of coughing and felt short of breath. She then developed palpitations 10 minutes later and since then has been having intermittent palpitations. She has been dealing with A. fib for about 5 years now and sees cardiology as outpatient. She was in the process of getting started on antiarrhythmic agent and was told that she needed to be admitted to the hospital to be able to start that. She currently is on Cardizem and Eliquis for her A. fib. She does not have any underlying thyroid disease. She denies any chest pain. Her shortness of breath has resolved. No nausea or vomiting. No recent medication changes. Past Med Surg Social Fam HX - Past Medical History Attestation: Yes The following information was validated with the patient. Source: patient Medical history: atrial fibrillation, diabetes, GERD, hyperlipidemia, hypertension, migraine, seizures, other Psychiatric history: anxiety, depression - Past Surgical History Surgical History: appendectomy, splenectomy - Social History Smoking Status: Former smoker Smokeless Tobacco Status: No Alcohol use: rarely Drug use: none - Family History Mother Adopted: No Living Status: Still Living Hx Family Cardiac Disorders: Yes (HTN) Hx Family Endocrine Disorder: Yes (DM) Father Hx Family Cardiac Disorders: Yes (CHF) Brother Hx Family Cardiac Disorders: Yes (A. FIB) Hx Family Endocrine Disorder: Yes (DM) Internal Medicine - H&P: Meds Pravastatin Sodium 80 mg PO QPM 12/02/14 [History] GlyBURIDE 5 mg PO BID 07/20/15 [History] Pioglitazone [Actos] 45 mg PO QAM 07/20/15 [History] Apixaban [Eliquis] 5 mg PO BID 01/01/16 [History] Diclofenac Sodium [Voltaren] 1 appl TP 2-3XD PRN 06/11/16 [History] FLUoxetine HCl [Prozac] 20 mg PO BID 06/11/16 [History] Naproxen Sodium [Aleve] 220 mg PO Q12H PRN 06/11/16 [History] Diltiazem CD (24hr) [Cardizem CD] 240 mg PO DAILY #30 cap.er.24h 06/13/16 [Rx] Metoprolol [Lopressor] 25 mg PO BID #60 tablet 06/13/16 [Rx] Albuterol Sulfate [Albuterol Inhaler] 2 puff IH QID PRN #1 hfa.aer.ad 07/20/16 [ Rx] Oxycodone HCl/Acetaminophen [Percocet 5-325 mg Tablet] 1 each PO Q4-6H PRN #40 tablet 07/23/16 [Rx] Hydrochlorothiazide 50 mg PO DAILY 08/20/16 [History] Allergies citalopram [From Celexa] Allergy (Verified 08/20/16 02:29) Hives All Systems PM: A 10-system review of systems was performed and is negative for pertinent findings except as documented above in the HPI. - Constitutional Constitutional: no chills, no fever(s), no night sweats - EENT Eyes: no change in vision, no discharge, no pain, no photophobia Ears: no ear discharge, no ear pain, no tinnitus Nose, mouth and throat: no dysphagia, no nasal discharge, no neck pain, no sore throat - Cardiovascular Cardiovascular ROS IM: palpitations, no chest pain, no diaphoresis, no dyspnea, no lightheadedness, no syncope - Respiratory Respiratory: no cough, no dyspnea, no wheezing, no excessive phlegm production - Gastrointestinal Gastrointestinal: no abdominal pain, no diarrhea, no hematemesis, no hematochezia, no melena, no nausea, no vomiting - Genitourinary Genitourinary: no change in urinary stream, no dysuria, no flank pain, no hematuria - Musculoskeletal Musculoskeletal ROS IM: no numbness, no tingling - Integumentary Integumentary IM: no rash, no unusual bruising - Neurological Neurological ROS: no confusion, no convulsions, no focal weakness, no numbness, no tingling, no tremor(s) - Hematologic/Lymphatic Hematologic/Lymphatic: no easy bruising - Constitutional Vitals: Temp Pulse Resp BP Pulse Ox 97.7 F 105 14 95/63 95 08/20/16 02:29 08/20/16 08:21 08/20/16 08:21 08/20/16 08:21 08/20/16 08:21 General appearance: Present: mild distress, A&O X 3, obese, answers questions appropriately - Eye Eye exam: Present: EOMI, PERRL, conjuntiva pink, sclera anicteric - Neck Neck exam general surgery: Present: supple, trachea midline. Absent: lymphadenopathy - Cardiovascular Cardiovascular exam: Present: irregular rhythm (Irregularly irregular), +S1, +S2 , tachycardia. Absent: diastolic murmur, gallop, rubs, systolic murmur - GI/Abdominal GI/Abdominal exam: Present: normal bowel sounds, soft, no peritoneal signs. Absent: distended, tenderness - Extremities Exam Extremities exam: Present: warm, radial pulses palpable and symetrical. Absent : calf tenderness, cyanotic, pedal edema - Neurological Exam Neurological exam: Present: CN II-XII intact, oriented X3, no focal deficits, strengths equal and symetr throughout. Absent: facial droop, speech deficit - Skin Skin exam: Present: dry, intact Internal Med - H&P Results - Labs CBC & Chem 7: 08/20/16 03:03 08/20/16 03:03 Labs: Short CBC 08/20/16 Range/Units 03:03 WBC 14.7 H (4.3-11.1) K/mcL Hgb 13.8 (11.5-15.4) g/dL Hct 42.7 (35.3-44.9) % Plt Count 516 H (140-400) K/mcL Neutrophils # 8.6 (1.6-8.9) K/mcL BMP 08/20/16 03:03 Sodium 134 L Potassium 4.4 Chloride 104 Carbon Dioxide 20 BUN 15 Creatinine 0.78 Glucose 317 H Calcium 9.7 Cardiac Enzymes 08/20/16 Range/Units 03:03 Troponin I 0.00 (0-0.03) ng/mL Liver Function 08/20/16 Range/Units 03:03 Total Bilirubin 0.2 (0.2-1.2) mg/dL AST 18 (5-34) Units/L ALT 21 (0-55) Units/L Alkaline Phosphatase 81 (38-126) Units/L Albumin 3.3 L (3.5-5.0) g/dL Urine 08/20/16 Range/Units 02:41 Urine Color Yellow (Yellow) Urine Clarity Clear (Clear) Urine pH 6.0 (5.0-8.0) pH Units Ur Specific [place] 1.018 (1.010-1.025) Urine Protein Negative (Neg-Trace) mg/dL Urine Glucose (UA) >=1000 H (Normal) mg/dL - EKG Data -: EKG Interpreted by Myself - EKG Data EKG comments: 08/20/16 09:01 A. fib with rapid ventricular response - Impressions ITS Impressions Chest X-Ray 08/20/16 02:46 IMPRESSION: No acute disease D/ / Cruz Macias MD / Cruz Macias MD Interpreting Provider: Cruz Macias MD - Attending Attestation This document has been at least partially created by [employer] recognition technology by Dr. Cortez. Errors in grammar, wording or other phrases may exist. If errors are found after the documentation is signed, they will be addressed individually in the addendum section of this document when appropriate.
[2016-08-20] MEDS ORDERED: *HR* OxyCODONE/APAP 5/325 TABLET PO PRN (09:05)
[2016-08-20 09:47] LABS: Hemoglobin A1C 8.1 %
[2016-08-20] MEDS ORDERED: D5% in Water 1,000 ML IVC PRN (09:50)
[2016-08-20] MEDS ORDERED: *HR* Dextrose 50 % in Water (Syg) 50 ML SYRINGE IVP PRN (09:50)
[2016-08-20] MEDS ORDERED: Dextrose Gel 15 GM PO PRN ×2 (09:50)
[2016-08-20] MEDS: APIXABAN 5 MG TABLET PO SCH ×2 (10:16→21:27)
--- NOTE | 2016-08-20 14:00 | Cardiology Consult Note ---
Date of Encounter: 08/20/16 Time of Encounter: 14:00 Assessment and Plan (1) Atrial fibrillation with RVR Current Visit: Yes Status: Acute Prsented with afib with RVR HR up to 200 bpm. Given cardizem bolus and started on IV gtt. Converted to NSR. Convert gtt back to oral cardizem. H/o PAF since 2011. Seen by Dr. Osmin Dent 07/16/16 in the out pt setting for PAF. Recommendation was to start rhythmol therapy if stress test was negative, Stress test 07/21/16 negative for ischemia. Last TTE 01/2016- EF 60-65%. No significant valvular disease. EKG at baseline shows SR, HR 91, QT/QTc 353/402, QRS 86. Agreeable to start rhythmol as planned . Requires five monitored dose in hospital. On eliquis for anticoagulation. Restarted two weeks ago after stopping for two weeks for tonsillectomy. Discussion w patient/family: The assessment and plan as outlined above was discussed with the patient and/or family members who expressed understanding and agreement. All questions were answered. Thank you for involving us in the care of your patient. Please call with any questions. History of Present Illness Consult date: 08/20/16 Consult reason: afib Chief complaint: Palpitations History of present illness: Ms. Sherwood is a 30 year old female wih a history of paroxysmal atrial fibrillation on eliquis, DM type II, and seizures. SHe presents with palpitations and SOB. She was found to be in atrial fibrillation with RVR. She was started on cardizem gtt and converted to NSR. She was planning to be admitted this week to start rhythmol therapy. Cardiology consulted for anti- arryhthmic therapy. Recent cardiac testing: Pharmacologic stress test 07/21/16- perfusion imaging negative for ischemia. TTE 01/30/16- EF 60-65%, no significant valvular disease. Past Med Surg Social Fam HX - Past Medical History Medical history: atrial fibrillation, diabetes, GERD, hyperlipidemia, hypertension, migraine, seizures, other Psychiatric history: anxiety, depression - Past Surgical History Surgical History: appendectomy, splenectomy - Social History Smoking Status: Former smoker Smokeless Tobacco Status: No Alcohol use: rarely Drug use: none - Family History Mother Adopted: No Living Status: Still Living Hx Family Cardiac Disorders: Yes (HTN) Hx Family Endocrine Disorder: Yes (DM) Father Hx Family Cardiac Disorders: Yes (CHF) Brother Hx Family Cardiac Disorders: Yes (A. FIB) Hx Family Endocrine Disorder: Yes (DM) Medications and Allergies Pravastatin Sodium 80 mg PO QPM 12/02/14 [History] GlyBURIDE 5 mg PO BID 07/20/15 [History] Pioglitazone [Actos] 45 mg PO QAM 07/20/15 [History] Apixaban [Eliquis] 5 mg PO BID 01/01/16 [History] Diclofenac Sodium [Voltaren] 1 appl TP 2-3XD PRN 06/11/16 [History] FLUoxetine HCl [Prozac] 20 mg PO BID 06/11/16 [History] Naproxen Sodium [Aleve] 220 mg PO Q12H PRN 06/11/16 [History] Diltiazem CD (24hr) [Cardizem CD] 240 mg PO DAILY #30 cap.er.24h 06/13/16 [Rx] Metoprolol [Lopressor] 25 mg PO BID #60 tablet 06/13/16 [Rx] Albuterol Sulfate [Albuterol Inhaler] 2 puff IH QID PRN #1 hfa.aer.ad 07/20/16 [ Rx] Oxycodone HCl/Acetaminophen [Percocet 5-325 mg Tablet] 1 each PO Q4-6H PRN #40 tablet 07/23/16 [Rx] Hydrochlorothiazide 50 mg PO DAILY 08/20/16 [History] Allergies citalopram [From Celexa] Allergy (Verified 08/20/16 02:29) Hives All Systems Review: A 10-system review of systems was performed and is negative for pertinent findings except as documented above in the HPI. Physical Examination Vital Signs, Last 4 Hours Temp Pulse Resp BP Pulse Ox 08/20/16 13:45 97.8 F 89 17 108/64 95 08/20/16 12:20 14 127/83 General: Conversant, No Apparent Distress HEENT: Atraumatic, Normocephaly, Mucus Membranes Moist Neck: No JVD, Normal carotid pulses Cardiac: Reg Rate and Rhythm, Normal S1 and S2, No Murmur Lungs: Normal Breath Sounds, No Wheeze, Rales, Rhonchi Neuro: Alert and responsive, No focal deficits noted Abdomen: Soft, Non-Tender Skin: No rashes noted on visualized skin Musculoskeletal: No Chest Wall Tenderness Extremities: No Clubbing, No Cyanosis, No Edema, Normal Pulses Results 08/20/16 03:03 08/20/16 03:03 - Imaging and Cardiology Stress Test: report reviewed Echo: report reviewed - EKG Interpretation EKG results cardiology: personally reviewed Consult Discharge Plan - Plan Referrals: Marie Velez, SECURITY SYSTEM ANALYST [Primary Care Provider] -
[2016-08-20] MEDS: Insulin LISPRO 300 UNITS/3 ML VIAL SQ SCH ×3 (14:09→21:23)
[2016-08-20] MEDS: Diltiazem CD (24hr) 240 MG CAPSULE PO SCH (14:27)
--- NOTE | 2016-08-20 18:39 | Electrocardiograph Report ---
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
--- NOTE | 2016-08-20 18:43 | Electrocardiograph Report ---
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
[2016-08-20] MEDS: Insulin DETEMIR 100 UNIT/ML X5UNITS SQ SCH (21:27)
[2016-08-20] MEDS: FLUoxetine 20 MG CAPSULE PO SCH (21:27)
[2016-08-21 05:59] LABS: Basophils # 0.1 K/mcL (0.0-0.2); Basophils % 0.7 %; Eosinophils # 0.4 K/mcL (0.0-0.6); Eosinophils % 3.1 %; Hematocrit 39.8 % (35.3-44.9); Hemoglobin 12.9 g/dL (11.5-15.4); Immature Granulocytes % 0.4 % (0-4); Lymphocytes # 3.1 K/mcL (0.6-4.6); Lymphocytes % 27.2 %; Mean Corpuscular HGB Conc 32.4 g/dL (31.6-35.5); Mean Corpuscular Hemoglobin 28.4 pg (28.0-33.3); Mean Corpuscular Volume 87.5 fL (83.0-100.0); Mean Platelet Volume 9.7 fL (9.4-12.4); Monocytes # 1.3 K/mcL (0.0-1.3); Monocytes % 11.2 %; Neutrophils # 6.4 K/mcL (1.6-8.9); Platelet Count 497 K/mcL (140-400); Red Blood Count 4.55 M/mcL (3.82-4.97); Red Cell Distribution Width 15.3 % (11.5-14.5); Segmented Neutrophils % 57.4 %
[2016-08-21 06:47] LABS: BUN/Creatinine Ratio 13 (6-26); Blood Urea Nitrogen 9 mg/dL (7-20); Calcium 9.2 mg/dL (8.6-10.8); Carbon Dioxide 24 mEq/L (19-29); Chloride 105 mEq/L (98-109); Chol/HDL Ratio 6.3 (0-4.9); Cholesterol 226 mg/dL (< 200); Glucose 174 mg/dL (70-99); HDL Cholesterol 36 mg/dL (40-59); LDL Cholesterol,Calculated 163 mg/dL (0-99); Osmolality,Calculated 287 (280-300); Potassium 4.1 mEq/L (3.5-4.5); Sodium 137 mEq/L (136-145); Triglycerides 135 mg/dL (< 150); eGFR For African Americans > 60 (> 60); eGFR For Non-African Americans > 60 (> 60)
[2016-08-21] MEDS: APIXABAN 5 MG TABLET PO SCH ×2 (08:09→20:25)
[2016-08-21] MEDS: FLUoxetine 20 MG CAPSULE PO SCH ×2 (08:10→20:25)
[2016-08-21] MEDS: Insulin DETEMIR 100 UNIT/ML X5UNITS SQ SCH ×2 (08:10→20:24)
[2016-08-21] MEDS: Diltiazem CD (24hr) 240 MG CAPSULE PO SCH (08:10)
[2016-08-21] MEDS: Insulin LISPRO 300 UNITS/3 ML VIAL SQ SCH ×4 (08:10→20:25)
[2016-08-21] MEDS ORDERED: hydroCHLOROthiazide 25 MG TABLET PO SCH (09:00)
[2016-08-21] MEDS ORDERED: Diltiazem CD (24hr) 240 MG CAPSULE PO SCH (09:00)
--- NOTE | 2016-08-21 09:35 | Cardiology Progress Note ---
Date of Encounter: 08/21/16 Time of Encounter: 09:30 Assessment and Plan (1) Atrial fibrillation with RVR Current Visit: Yes Status: Acute Prsented with afib with RVR HR up to 200 bpm. Given cardizem bolus and started on IV gtt. Converted to NSR. Convert gtt back to oral cardizem. H/o PAF since 2011. Seen by Dr. Osmin Dent 07/16/16 in the out pt setting for PAF. Recommendation was to start rhythmol therapy if stress test was negative, Stress test 07/21/16 negative for ischemia. Last TTE 01/2016- EF 60-65%. No significant valvular disease. EKG at baseline shows SR, HR 91, QT/QTc 353/402, QRS 86. Hypotensive this AM. Decrease HCTZ. Rythmol initiated at 150mg [id number]. She has received 3 doses. EKG this AM reviewed, SR HR 84, QRS 98, QT/QTc 384/425. On eliquis for anticoagulation. Restarted two weeks ago after stopping for two weeks for tonsillectomy. Plan for discharge in AM. (2) Encounter for monitoring anti-arrhythmic therapy Current Visit: Yes Status: Acute As above, needs monitored for 5 doses of Rythmol. Discussion w patient/family: The assessment and plan as outlined above was discussed with the patient and/or family members who expressed understanding and agreement. All questions were answered. Thank you for involving us in the care of your patient. Please call with any questions. I will discuss all the above with Dr. Cox and make changes as necessary. Subjective Principal diagnosis: A-Fib Interval history: Pt has received 3 doses of Rythmol. She is maintaining SR, denies any acute complaints. EKGs reviewed, QRS remains <120ms. Objective Vital Signs, Last 4 Hours Temp Pulse Resp BP Pulse Ox 08/21/16 06:56 98.3 F 79 16 92/55 96 Vital Signs Temp Pulse Resp BP Pulse Ox 08/21/16 06:56 98.3 F 79 16 92/55 96 08/21/16 03:43 97.9 F 88 18 113/73 94 08/20/16 23:46 98.1 F 86 18 114/71 96 08/20/16 20:23 97.8 F 87 15 96/62 97 08/20/16 15:41 98.1 F 85 18 106/68 96 08/20/16 13:45 97.8 F 89 17 108/64 95 08/20/16 12:20 14 127/83 08/20/16 10:18 90 16 106/68 96 Intake and Output 08/20/16 08/21/16 08/21/16 23:59 07:59 15:59 Intake Total 700 / 700 120 / 120 Balance 700 / 700 120 / 120 Intake: Oral 700 / 700 120 / 120 Other: Meal Breakfast Percent of Meal Consumed 60% Weight 125 kg Blood Glucose* 174 154 Patient Weight 08/21/16 23:59 Weight 125 kg General: Conversant, No Apparent Distress HEENT: Atraumatic, Normocephaly, Mucus Membranes Moist Neck: No JVD, Normal carotid pulses Cardiac: Reg Rate and Rhythm, Normal S1 and S2, No Murmur Lungs: Normal Breath Sounds, No Wheeze, Rales, Rhonchi Neuro: Alert and responsive, No focal deficits noted Abdomen: Soft, Non-Tender Skin: No rashes noted on visualized skin Musculoskeletal: No Chest Wall Tenderness Extremities: No Clubbing, No Cyanosis, No Edema, Normal Pulses Results 08/21/16 05:08 08/21/16 05:51 Lab Results 08/21/16 08/21/16 05:08 05:51 WBC 11.2 H Hgb 12.9 Hct 39.8 Plt Count 497 H Sodium 137 Potassium 4.1 Chloride 105 Carbon Dioxide 24 BUN 9 Creatinine 0.68 Glucose 174 H Calcium 9.2 Short CBC 08/21/16 Range/Units 05:08 WBC 11.2 H (4.3-11.1) K/mcL Hgb 12.9 (11.5-15.4) g/dL Hct 39.8 (35.3-44.9) % Plt Count 497 H (140-400) K/mcL Neutrophils # 6.4 (1.6-8.9) K/mcL BMP 08/21/16 Range/Units 05:51 Sodium 137 (136-145) mEq/L Potassium 4.1 (3.5-4.5) mEq/L Chloride 105 (98-109) mEq/L Carbon Dioxide 24 (19-29) mEq/L BUN 9 (7-20) mg/dL Creatinine 0.68 (0.57-1.11) mg/dL Glucose 174 H (70-99) mg/dL Calcium 9.2 (8.6-10.8) mg/dL Active Medications Acetaminophen (Tylenol) 650 mg PO Q6HR PRN PRN Reason: Mild Pain (1-3) Stop: 02/19/17 07:41 Albuterol Sulfate (Albuterol Inhaler) 2 puff IH QID PRN PRN Reason: cough Stop: 02/19/17 09:06 Apixaban (Eliquis) 5 mg PO BID [facility] Stop: 02/19/17 21:01 Last Admin: 08/21/16 08:09 Dose: 5 mg Dextrose/Water (Dextrose 50% (Syg)) 25 ml IVP AD PRN PRN Reason: Hypoglycemia Stop: 02/19/17 09:51 Diltiazem HCl (Cardizem Cd) 240 mg PO DAILY [facility] Stop: 02/19/17 14:08 Last Admin: 08/21/16 08:10 Dose: 240 mg Fluoxetine HCl (Prozac) 20 mg PO BID [facility] PRN Reason: Protocol Stop: 02/19/17 21:01 Last Admin: 08/21/16 08:10 Dose: 20 mg Glucagon (Glucagen) 1 mg IM ONCE PRN PRN Reason: Hypoglycemia Stop: 02/19/17 09:51 Glucose (Gluctose) 15 gm PO ONCE PRN PRN Reason: Hypoglycemia Stop: 02/19/17 09:51 Glucose (Gluctose) 30 gm PO ONCE PRN PRN Reason: Hypoglycemia Stop: 02/19/17 09:51 Hydrochlorothiazide (Hydrochlorothiazide) 50 mg PO DAILY [facility] Stop: 02/20/17 09:01 Last Admin: 08/21/16 08:10 Dose: 50 mg Dextrose (Dextrose 5%) 1,000 mls @ 100 mls/hr IVC .Q10H PRN PRN Reason: HYPOGLYCEMIA Stop: 02/19/17 09:51 Insulin Detemir (Levemir) 10 unit SQ BID [facility] Stop: 02/19/17 21:01 Last Admin: 08/21/16 08:10 Dose: 10 unit Insulin Human Lispro (Humalog) 0 units SQ HS MEG PRN Reason: Protocol Stop: 02/19/17 21:01 Last Admin: 08/20/16 21:23 Dose: Not Given Insulin Human Lispro (Humalog) 0 units SQ TIDAC MEG PRN Reason: Protocol Stop: 02/19/17 11:31 Last Admin: 08/21/16 08:10 Dose: 4 units Naloxone HCl (Narcan) 0.4 mg IVP Q2MIN PRN PRN Reason: Opioid Reversal Stop: 02/19/17 07:41 Oxycodone/Acetaminophen (Percocet 5/325) 1 each PO Q6H PRN PRN Reason: Moderate to Severe Pain (4-10) Stop: 02/19/17 09:06 Propafenone HCl (Rhythmol) 150 mg PO Q8H [facility] Stop: 02/19/17 16:31 Last Admin: 08/21/16 08:10 Dose: 150 mg Simvastatin (Zocor) 40 mg PO QPM [facility] Stop: 02/19/17 18:01 Last Admin: 08/20/16 17:15 Dose: 40 mg - Imaging and Cardiology Stress Test: report reviewed - EKG Interpretation EKG results cardiology: other (24 hour tele AVG HR 84, SR.) Consult Discharge Plan - Plan Referrals: Marie Velez, MAINTENANCE SERVICE SUPERVISOR [Primary Care Provider] - (Web request 08-21-16)
--- NOTE | 2016-08-21 14:35 | Internal Med Progress Note ---
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: without [place] [facility] use Qualified Code(s): E11.65 - Type 2 diabetes mellitus with hyperglycemia (3) Hyperlipidemia Current Visit: Yes Status: Chronic Assessment and plan: continue statin Qualifiers: Hyperlipidemia type: pure hypercholesterolemia Qualified Code(s): E78.00 - Pure hypercholesterolemia, unspecified; E78.0 - Pure hypercholesterolemia (4) Essential hypertension Current Visit: No Status: Chronic Assessment and plan: BP within acceptable range continue home medications (5) DVT prophylaxis Current Visit: No Status: Acute Assessment and plan: anticoagulated with Eliquis (6) Morbid obesity Current Visit: No Status: Chronic Qualifiers: Obesity type: due to excess calories Qualified Code(s): E66.01 - Morbid ( severe) obesity due to excess calories - Subjective Interval history: Patient seen and examined at bedside. Resting comfortably in bed and denies any discomfort at this time. Started on Rhythmol and currently tolerating the medication well. Will monitor overnight and if remains stable, likely discharge in am. - Constitutional Vitals: Temp Pulse Resp BP Pulse Ox 98.3 F 90 18 99/62 94 08/21/16 10:57 08/21/16 10:57 08/21/16 10:57 08/21/16 10:57 08/21/16 10:57 General appearance: Present: A&O X 3, morbidly obese, no acute distress, answers questions appropriately - Head Head exam: Present: atraumatic, normocephalic - Eye Eye exam: Present: normal appearance, conjuntiva pink, sclera anicteric - Respiratory Respiratory exam: Present: CTAB. Absent: accessory muscle use, rales, rhonchi, wheezes - Cardiovascular Cardiovascular exam: Present: RRR, +S1, +S2. Absent: diastolic murmur, gallop, rubs, systolic murmur - GI/Abdominal GI/Abdominal exam: Present: normal bowel sounds, soft, no peritoneal signs. Absent: distended, tenderness - Extremities Exam Extremities exam: Present: warm, radial pulses palpable and symetrical. Absent : calf tenderness, cyanotic, pedal edema - Neurological Exam Neurological exam: Present: alert, oriented X3, no focal deficits - Psychiatric Psychiatric exam: Present: normal affect, normal mood Internal Medicine: Result - Labs CBC & Chem 7: 08/21/16 05:08 08/21/16 05:51 Labs: Short CBC 08/21/16 Range/Units 05:08 WBC 11.2 H (4.3-11.1) K/mcL Hgb 12.9 (11.5-15.4) g/dL Hct 39.8 (35.3-44.9) % Plt Count 497 H (140-400) K/mcL Neutrophils # 6.4 (1.6-8.9) K/mcL BMP 08/21/16 05:51 Sodium 137 Potassium 4.1 Chloride 105 Carbon Dioxide 24 BUN 9 Creatinine 0.68 Glucose 174 H Calcium 9.2 - ABG Interpretation ABG results: PT/INR, D-dimer PT 10.7 Seconds (9.4-12.1) 08/20/16 03:54 Consult Discharge Plan - Plan Referrals: Marie Velez, GUEST SERVICES ASSOCIATE [Primary Care Provider] - (Web request 08-21-16)
[2016-08-22 04:49] LABS: Basophils # 0.1 K/mcL (0.0-0.2); Basophils % 0.6 %; Eosinophils # 0.3 K/mcL (0.0-0.6); Eosinophils % 1.7 %; Hematocrit 39.4 % (35.3-44.9); Hemoglobin 12.6 g/dL (11.5-15.4); Immature Granulocytes % 0.4 % (0-4); Lymphocytes # 3.2 K/mcL (0.6-4.6); Lymphocytes % 22.6 %; Mean Corpuscular Hemoglobin 27.7 pg (28.0-33.3); Mean Corpuscular Volume 86.6 fL (83.0-100.0); Mean Platelet Volume 9.5 fL (9.4-12.4); Monocytes # 1.5 K/mcL (0.0-1.3); Monocytes % 10.5 %; Neutrophils # 9.2 K/mcL (1.6-8.9); Platelet Count 510 K/mcL (140-400); Red Blood Count 4.55 M/mcL (3.82-4.97); Red Cell Distribution Width 14.7 % (11.5-14.5); Segmented Neutrophils % 64.2 %
[2016-08-22 04:59] LABS: BUN/Creatinine Ratio 16 (6-26); Blood Urea Nitrogen 11 mg/dL (7-20); Calcium 9.3 mg/dL (8.6-10.8); Carbon Dioxide 24 mEq/L (19-29); Chloride 104 mEq/L (98-109); Glucose 137 mg/dL (70-99); Magnesium 1.6 mg/dL (1.6-2.6); Osmolality,Calculated 286 (280-300); Phosphorous 4.4 mg/dL (2.3-4.7); Potassium 3.6 mEq/L (3.5-4.5); Sodium 137 mEq/L (136-145); eGFR For African Americans > 60 (> 60); eGFR For Non-African Americans > 60 (> 60)
[2016-08-22] MEDS: Diltiazem CD (24hr) 240 MG CAPSULE PO SCH (07:42)
[2016-08-22] MEDS: Insulin LISPRO 300 UNITS/3 ML VIAL SQ SCH (07:43)
[2016-08-22] MEDS: APIXABAN 5 MG TABLET PO SCH (07:43)
[2016-08-22] MEDS: FLUoxetine 20 MG CAPSULE PO SCH (07:43)
[2016-08-22] MEDS: Insulin DETEMIR 100 UNIT/ML X5UNITS SQ SCH (07:47)
[2016-08-22 08:37] VITALS: BP 105/62
[2016-08-22] MEDS ORDERED: hydroCHLOROthiazide 25 MG TABLET PO SCH (09:00)
--- NOTE | 2016-08-22 09:46 | Discharge Summary ---
Date of Encounter: 08/22/16 Time of Encounter: 09:00 - Discharge Diagnosis (1) Atrial fibrillation with RVR Priority: Primary Status: Acute (2) Type 2 diabetes mellitus Priority: Secondary Status: Chronic Qualifiers: Diabetes mellitus complication status: with hyperglycemia Diabetes mellitus intermediate accountant insulin use: without custodial use Qualified Code(s): E11.65 - Type 2 diabetes mellitus with hyperglycemia (3) Hyperlipidemia Priority: Secondary Status: Chronic Qualifiers: Hyperlipidemia type: pure hypercholesterolemia Qualified Code(s): E78.00 - Pure hypercholesterolemia, unspecified; E78.0 - Pure hypercholesterolemia (4) Essential hypertension Priority: Secondary Status: Chronic (5) DVT prophylaxis Priority: Secondary Status: Acute (6) Morbid obesity Priority: Secondary Status: Chronic Qualifiers: Obesity type: due to excess calories Qualified Code(s): E66.01 - Morbid ( severe) obesity due to excess calories - Discharge Medications Prescriptions: RX: Hydrochlorothiazide 12.5 mg PO DAILY #30 tablet RX: Propafenone [Rhythmol] 150 mg PO Q8H #60 tablet Home Medications: RX: Pravastatin Sodium 80 mg PO QPM 12/02/14 [History] RX: GlyBURIDE 5 mg PO BID 07/20/15 [History] RX: Pioglitazone [Actos] 45 mg PO QAM 07/20/15 [History] RX: Apixaban [Eliquis] 5 mg PO BID 01/01/16 [History] RX: Diclofenac Sodium [Voltaren] 1 appl TP 2-3XD PRN 06/11/16 [History] RX: FLUoxetine HCl [Prozac] 20 mg PO BID 06/11/16 [History] RX: Naproxen Sodium [Aleve] 220 mg PO Q12H PRN 06/11/16 [History] RX: Diltiazem CD (24hr) [Cardizem CD] 240 mg PO DAILY #30 cap.er.24h 06/13/16 [ Rx] RX: Albuterol Sulfate [Albuterol Inhaler] 2 puff IH QID PRN #1 hfa.aer.ad [Rx] RX: Oxycodone HCl/Acetaminophen [Percocet 5-325 mg Tablet] 1 each PO Q4-6H PRN # 40 tablet 07/23/16 [Rx] RX: Hydrochlorothiazide 12.5 mg PO DAILY #30 tablet 08/22/16 [Rx] RX: Propafenone [Rhythmol] 150 mg PO Q8H #60 tablet 08/22/16 [Rx] Allergies/Adverse Reactions: Allergies citalopram [From Celexa] Allergy (Verified 08/20/16 02:29) Hives Date of admission: 08/20/16 18:21 Primary care physician: Marie Velez CNP Consults: Cardiology: Dr. Cox Discharging clinician: Tasha Jeffery Anticipated date of discharge: 08/22/16 - Patient Status Disposition: Home, Self-Care Condition: Good Functional capacity at discharge: independent ambulation Overall status at discharge: patient is back to baseline - Discharge Instructions Follow Up With: Marie Velez CNP [Primary Care Provider] - (Web request 08-21-16) Additional Instructions: Please follow up with your primary care physician within one week after your discharge from the hospital. Please follow up with your sweatband shaper within 5 days after your discharge from the hospital. Rhythmol 150mg three times a day has been added to your home medication list. Please take this medication as prescribed. Due to your low blood pressure readings, Metoprolol has been discontinued and Hydrochlorothiazide dose has been decreased to 12.5mg once a day. Please closely monitor your blood pressure at home, hold your home dose of Hydrochlorothiazide if your SBP<100 Resume all other medications as prescribed by your primary care physician. - Diet and Activity Activity: resume usual activities as tolerated Diet: diabetic diet, low salt diet Hospital course: Ms. Sherwood is a 30 year old female with past medical history of A. fib, diabetes , hyperlipidemia, morbid obesity who was admitted for management of poorly rate controlled atrial fibrillation. Patient was started on Cardizem drip and cardiology was consulted. Patient was started on Rythmol with titration off Cardizem drip. Patient's rate remained within acceptable limits and she was titrated off the Cardizem drip. She was also noted to have borderline blood pressure due to which her home dose of metoprolol was placed on hold. She was tolerating HCTZ however given her BP readings, will decrease dosing with set parameters. Cardiology agrees with this care plan. At this time patient is hemodynamically stable, heart rate controlled, and will be discharged to home with follow-up with cardiology and primary care physician. Patient demonstrates understanding of her diagnosis and agrees with the discharge care and plan. - Time Spent with Patient Total time spent providing and/or coordinating discharge services: Less than 30 minutes - Constitutional Vitals: Temp Pulse Resp BP Pulse Ox 98.1 F 88 18 105/62 93 08/22/16 08:00 08/22/16 08:00 08/22/16 08:00 08/22/16 08:00 08/22/16 08:00 General appearance: Present: A&O X 3, morbidly obese, no acute distress, answers questions appropriately - Head Head exam: Present: atraumatic, normocephalic - Eye Eye exam: Present: normal appearance, conjuntiva pink, sclera anicteric - Respiratory Respiratory exam: Present: CTAB. Absent: accessory muscle use, rales, rhonchi, wheezes - Cardiovascular Cardiovascular exam: Present: RRR, +S1, +S2. Absent: diastolic murmur, gallop, rubs, systolic murmur - GI/Abdominal GI/Abdominal exam: Present: normal bowel sounds, soft, no peritoneal signs. Absent: distended, tenderness - Extremities Exam Extremities exam: Present: warm, radial pulses palpable and symetrical. Absent : calf tenderness, cyanotic, pedal edema - Neurological Exam Neurological exam: Present: alert, oriented X3
--- NOTE | 2016-08-22 10:17 | Cardiology Progress Note ---
Date of Encounter: 08/22/16 Time of Encounter: 10:15 Assessment and Plan (1) Atrial fibrillation with RVR Current Visit: Yes Status: Acute Prsented with afib with RVR HR up to 200 bpm. Given cardizem bolus and started on IV gtt. Converted to NSR. Convert gtt back to oral cardizem. H/o PAF since 2011. Seen by Dr. Osmin Dent 07/16/16 in the out pt setting for PAF. Recommendation was to start rhythmol therapy if stress test was negative, Stress test 07/21/16 negative for ischemia. Last TTE 01/2016- EF 60-65%. No significant valvular disease. Decreased HCTZ, stopped BB due to marginal BP. Continue Rythmol and Cardizem. Rythmol initiated at 150mg [id number]. She has received 6 doses. EKGs show QTc remains <120ms. On eliquis for anticoagulation. Restarted two weeks ago after stopping for two weeks for tonsillectomy. Cardiology signing off. Reconsult PRN. Follow-up in 2-3 weeks as outpt. Will coordinate. (2) Encounter for monitoring anti-arrhythmic therapy Current Visit: Yes Status: Acute As above, has received 6 doses, maintaining SR. Discussion w patient/family: The assessment and plan as outlined above was discussed with the patient and/or family members who expressed understanding and agreement. All questions were answered. Thank you for involving us in the care of your patient. Please call with any questions. I will discuss all the above with Dr. Cox and make changes as necessary. Subjective Principal diagnosis: A-Fib Interval history: Pt has received 6 doses of Rythmol. She is maintaining SR, denies any acute complaints. EKGs reviewed, QRS remains <120ms. Objective Vital Signs, Last 4 Hours Temp Pulse Resp BP Pulse Ox 08/22/16 08:00 98.1 F 88 18 105/62 93 Vital Signs Temp Pulse Resp BP Pulse Ox 08/22/16 08:00 98.1 F 88 18 105/62 93 08/22/16 04:55 97.8 F 96 18 96/67 94 08/21/16 23:53 98.3 F 88 16 114/73 94 08/21/16 20:37 98.4 F 97 16 95/60 94 08/21/16 15:43 97.6 F 86 16 106/63 94 08/21/16 15:03 98.3 F 87 16 97/55 94 08/21/16 10:57 98.3 F 90 18 99/62 94 Intake and Output 08/21/16 08/22/16 08/22/16 23:59 07:59 15:59 Intake Total 240 / 240 0 / 0 Output Total 0 / 0 Balance 240 / 240 0 / 0 Intake: Oral 240 / 240 0 / 0 Output: Urine 0 / 0 Other: Meal Dinner Percent of Meal Consumed 100% Weight 122.47 kg Blood Glucose* 256 132 Patient Weight 08/22/16 23:59 Weight 122.47 kg General: Conversant, No Apparent Distress HEENT: Atraumatic, Normocephaly, Mucus Membranes Moist Neck: No JVD, Normal carotid pulses Cardiac: Reg Rate and Rhythm, Normal S1 and S2, No Murmur Lungs: Normal Breath Sounds, No Wheeze, Rales, Rhonchi Neuro: Alert and responsive, No focal deficits noted Abdomen: Soft, Non-Tender Skin: No rashes noted on visualized skin Musculoskeletal: No Chest Wall Tenderness Extremities: No Clubbing, No Cyanosis, No Edema, Normal Pulses Results 08/22/16 04:15 08/22/16 04:15 Lab Results 08/22/16 08/22/16 04:15 04:15 WBC 14.3 H Hgb 12.6 Hct 39.4 Plt Count 510 H Sodium 137 Potassium 3.6 Chloride 104 Carbon Dioxide 24 BUN 11 Creatinine 0.68 Glucose 137 H Calcium 9.3 Magnesium 1.6 Short CBC 08/22/16 Range/Units 04:15 WBC 14.3 H (4.3-11.1) K/mcL Hgb 12.6 (11.5-15.4) g/dL Hct 39.4 (35.3-44.9) % Plt Count 510 H (140-400) K/mcL Neutrophils # 9.2 H (1.6-8.9) K/mcL BMP 08/22/16 Range/Units 04:15 Sodium 137 (136-145) mEq/L Potassium 3.6 (3.5-4.5) mEq/L Chloride 104 (98-109) mEq/L Carbon Dioxide 24 (19-29) mEq/L BUN 11 (7-20) mg/dL Creatinine 0.68 (0.57-1.11) mg/dL Glucose 137 H (70-99) mg/dL Calcium 9.3 (8.6-10.8) mg/dL Active Medications Acetaminophen (Tylenol) 650 mg PO Q6HR PRN PRN Reason: Mild Pain (1-3) Stop: 02/19/17 07:41 Last Admin: 08/22/16 09:29 Dose: 650 mg Albuterol Sulfate (Albuterol Inhaler) 2 puff IH QID PRN PRN Reason: cough Stop: 02/19/17 09:06 Apixaban (Eliquis) 5 mg PO BID [facility] Stop: 02/19/17 21:01 Last Admin: 08/22/16 07:43 Dose: 5 mg Dextrose/Water (Dextrose 50% (Syg)) 25 ml IVP AD PRN PRN Reason: Hypoglycemia Stop: 02/19/17 09:51 Diltiazem HCl (Cardizem Cd) 240 mg PO DAILY [facility] Stop: 02/19/17 14:08 Last Admin: 08/22/16 07:42 Dose: 240 mg Fluoxetine HCl (Prozac) 20 mg PO BID [facility] PRN Reason: Protocol Stop: 02/19/17 21:01 Last Admin: 08/22/16 07:43 Dose: 20 mg Glucagon (Glucagen) 1 mg IM ONCE PRN PRN Reason: Hypoglycemia Stop: 02/19/17 09:51 Glucose (Gluctose) 15 gm PO ONCE PRN PRN Reason: Hypoglycemia Stop: 02/19/17 09:51 Glucose (Gluctose) 30 gm PO ONCE PRN PRN Reason: Hypoglycemia Stop: 02/19/17 09:51 Hydrochlorothiazide (Hydrochlorothiazide) 25 mg PO DAILY [facility] PRN Reason: Protocol Stop: 02/22/17 09:01 Dextrose (Dextrose 5%) 1,000 mls @ 100 mls/hr IVC .Q10H PRN PRN Reason: HYPOGLYCEMIA Stop: 02/19/17 09:51 Insulin Detemir (Levemir) 10 unit SQ BID [facility] Stop: 02/19/17 21:01 Last Admin: 08/22/16 07:47 Dose: 10 unit Insulin Human Lispro (Humalog) 0 units SQ HS [facility] PRN Reason: Protocol Stop: 02/19/17 21:01 Last Admin: 08/21/16 20:25 Dose: 4 units Insulin Human Lispro (Humalog) 0 units SQ TIDAC MEG PRN Reason: Protocol Stop: 02/19/17 11:31 Last Admin: 08/22/16 07:43 Dose: Not Given Naloxone HCl (Narcan) 0.4 mg IVP Q2MIN PRN PRN Reason: Opioid Reversal Stop: 02/19/17 07:41 Oxycodone/Acetaminophen (Percocet 5/325) 1 each PO Q6H PRN PRN Reason: Moderate to Severe Pain (4-10) Stop: 02/19/17 09:06 Propafenone HCl (Rhythmol) 150 mg PO Q8H [facility] Stop: 02/20/17 15:01 Last Admin: 08/22/16 07:43 Dose: 150 mg Simvastatin (Zocor) 40 mg PO QPM [facility] Stop: 02/19/17 18:01 Last Admin: 08/21/16 17:38 Dose: 40 mg - EKG Interpretation EKG results cardiology: other (24 hour tele AVG HR 89, SR. No evidence of PAF.) Consult Discharge Plan - Plan Additional Instructions: Please follow up with your primary care physician within one week after your discharge from the hospital. 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 Rhythmol 150mg three times a day has been added to your home medication list. Please take this medication as prescribed. Due to your low blood pressure readings, Metoprolol has been discontinued and Hydrochlorothiazide dose has been decreased to 12.5mg once a day. Please closely monitor your blood pressure at home, hold your home dose of Hydrochlorothiazide if your SBP<100 Resume all other medications as prescribed by your primary care physician. Referrals: Marie Velez, MILAGROS [Primary Care Provider] - (Web request 08-21-16) Prescriptions: Hydrochlorothiazide 12.5 mg PO DAILY #30 tablet Propafenone [Rhythmol] 150 mg PO Q8H #60 tablet
--- NOTE | 2016-08-22 17:42 | Electrocardiograph Report ---
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
[2016-08-23] MEDS ORDERED: hydroCHLOROthiazide 25 MG TABLET PO SCH (09:00)
--- NOTE | 2016-08-24 17:35 | Electrocardiograph Report ---
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
== END 2016-08-22 11:05 | disposition home or self-care (01) | DRG 201 ==
LOC: EMEROO 02:28 → 2ANU 02:28
PROVIDERS: ADMIT Internal Medicine; ATTEND Internal Medicine

== ENCOUNTER 2017-05-25 10:11 | Observation (INO) ==
[2017-05-25 10:41] LABS: Bilirubin,Urine Negative (Negative); Blood,Urine Negative (Negative); Clarity,Urine Clear (Clear); Color,Urine Yellow (Yellow); Glucose,Urine (UA) Normal (Normal); Ketones,Urine Negative (Negative); Leukocyte Esterase,Urine Negative (Negative); Nitrite,Urine Negative (Negative); Protein,Urine Negative (Neg-Trace); Specific Gravity,Urine 1.019 (1.010-1.025); Urobilinogen,Urine Normal (Normal)
[2017-05-25 11:02] LABS: Amphetamine Screen,Urine Negative ng/mL (Cutoff=1000); Barbiturate Screen,Urine Negative ng/mL (Cutoff=200); Benzodiazepines Screen,Urine Negative ng/mL (Cutoff=200); Cannabinoid Screen,Urine Negative ng/mL (Cutoff = 50); Cocaine Screen,Urine Negative ng/mL (Cutoff= 300); Opiate Screen,Urine Negative ng/mL (Cutoff=300); Phencyclidine Screen,Urine Negative ng/mL (Cutoff=25)
--- NOTE | 2017-05-25 12:14 | OB/GYN Progress Note ---
Date of Encounter: 05/25/17 Time of Encounter: 12:09 - Assessment and Plan (1) Round ligament pain Current Visit: Yes Status: Acute RLQ pain at this time is most consistent with round ligament pain. UA unremarkable. Pt has had an appendectomy. Unlikely ovarian torsion given recent US with normal ovaries. Discharge home with precautions. Pt to return if pain worsens. Comfort measures discussed. (2) History of atrial fibrillation Current Visit: Yes Status: Acute Pt currently out of medications. Appt made with Dr. Dent on 06/05. Dr. Dent will refill medications today. 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 She reports a sudden onset of pain 5/10 with intermittent exacerbations that are worse. She denies any other complaints at this time. She has had an appendectomy previously and states her ovaries were normal on her anatomy US one week ago. She denies any urinary or bowel sx today. She sees [facility] for care due to history of A-fib and IDDM. She ran out of her cardiac medications 1 1/2 weeks ago due to difficulty getting an appointment scheduled. She states she has been able to tell in the past when she was having an arrhythmia and denies any sx today. Antepartum ROS: movement normal, no loss of fluid, no vaginal bleeding, no contractions Objective - Vital Signs Vital Signs: Intake and Output 05/24/17 05/25/17 05/25/17 23:59 07:59 15:59 Other: Weight 117.3 kg Patient Weight 05/25/17 23:59 Weight 117.3 kg - Exam FHR: auscultation normal FHR comments: +FHT via doppler Auscultation: bilateral: normal Abdomen: Present: soft, gravid Uterus: Absent: tenderness Comments: heart- RRR abdomen TTP in RLQ, no rebound or guarding, abdomen soft LE- normal inspection, no redness or tenderness
== END 2017-05-25 12:40 | disposition home or self-care (01) ==
LOC: 1NENULAB
PROVIDERS: ADMIT Obstetrics & Gynecology; ATTEND Obstetrics & Gynecology

== ENCOUNTER 2017-07-08 08:26 | Observation (INO) ==
[2017-07-08 09:12] VITALS: BP 121/84
--- NOTE | 2017-07-08 09:37 | OB/GYN History & Physical ---
Date of Encounter: 07/08/17 Time of Encounter: 09:13 Assessment and Plan (1) 26 weeks gestation of Current visit: Yes Status: Acute The patient received care at [facility]. Records have been requested (2) Decreased movement during in second trimester, antepartum Current visit: Yes Status: Acute Patient reports no movement and 36 hours. No heart tones auscultated. No cardiac activity or somatic motion noted on bedside ultrasound ultrasound limited by body habitus. 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 Sherwood is a 31 year old female with a LMP of 12/08/16, EDC 10/10/17 x 6 week 3 day ultrasound currently at 26 weeks per patient. Presents emergently department reporting no movement for 36 hours. She denies cramping, bleeding or loss of fluid but an upper abdominal burning. The patient had a suppressed menses visit with Dr. Martin on 02/17/17. She was noted to be too high risk she received care in [place] and was transferred to [facility]. The patient is seen in the diabetic clinic along with [facility] for her multiple medical conditions. She has atrial fibrillation and type 2 diabetes that is controlled with both oral medications and insulin. The patient reports good control with her current medication regimen of her diabetes. Her initial BMI with her suppressed menses was 44. She reports that her initial hemoglobin A1c was 9. Review of the labs that were obtained during her initial visit with Dr. Martin shows a Pap smear that was ASCUS, positive for high-risk HPV. Records have been requested from [facility] for review Past Med Surg Social Fam HX - Past Medical History Attestation: Yes The following information was validated with the patient. Source: patient, old records reviewed Medical history: atrial fibrillation, diabetes Psychiatric history: anxiety, depression - Past Surgical History Surgical History: appendectomy, splenectomy, other - Social History Smoking Status: Former smoker Smokeless Tobacco Status: No Alcohol use: none Drug use: none - Family History Mother Adopted: No Living Status: Still Living Hx Family Cardiac Disorders: Yes (HTN) Hx Family Endocrine Disorder: Yes (DM) Father Hx Family Cardiac Disorders: Yes (CHF) Brother Living Status: Still Living Hx Family Cardiac Disorders: Yes (A. FIB) Hx Family Endocrine Disorder: Yes (DM) Obstetrical History - Pregnancies : 1 Medications and Allergies glyBURIDE [GlyBURIDE] 5 mg PO DAILY 07/20/15 [History] Vit/Iron Fumarate/FA [ Tablet] 1 each PO DAILY #30 tablet 02/11 [Rx] Aspirin [Lo-Dose Aspirin EC] 81 mg PO DAILY 05/25/17 [History] Doxylamine Succinate [Unisom] 25 mg PO PRN PRN 05/25/17 [History] Insulin DETEMIR [Levemir] 15 units SQ QAM 05/25/17 [History] Insulin DETEMIR [Levemir] 34 units SQ QPM 05/25/17 [History] NovoLOG 8 units SQ ACHS 05/25/17 [History] Pyridoxine HCl [Vitamin B-6] 1 tab PO PRN PRN 05/25/17 [History] 3 Allergy/AdvReac Type Severity Reaction Status Date / Time citalopram [From Celexa] Allergy Mild Hives Verified 07/08/17 08:52 metformin AdvReac Mild Vomiting Verified 07/08/17 08:52 Review of System OB All systems PM: reviewed and no additional remarkable complaints except as stated - Constitutional Constitutional ROS IM: as per HPI - Cardiovascular Cardiovascular: as per HPI - Gastrointestinal Gastrointestinal: as per HPI - Genitourinary Genitourinary: as per HPI Exam - Vital Signs Vital signs: Initial Vital Signs Temp Pulse Resp BP 98.0 F 94 18 121/84 07/08/17 08:54 07/08/17 08:54 07/08/17 08:54 07/08/17 08:54 - Constitutional Constitutional: well developed, well nourished, mild distress, morbidly obese - HEENT HEENT: Normocephaly, Mucus Membranes Moist - Neck Neck exam: supple - Lungs Respiratory exam: CTAB - Cardiovascular Cardiovascular exam: RRR - Abdomen Abdomen: Present: gravid, non tender - Extremities Extremities exam: normal inspection, warm Deep Tendon Reflex Grade: 2+ Normal - Vulva Vulva: bilateral: normal - Vagina Vagina: Present: normal moisture - Anus/Rectum Anus/Rectum: Present: normal perianal skin Results All other labs normal. - VTE Reasons for not Prescribing Prophylaxis: Treatment not Indicated - Low risk for VTE
[2017-07-08 10:16] LABS: Amphetamine Screen,Urine Negative ng/mL (Cutoff=1000); Barbiturate Screen,Urine Negative ng/mL (Cutoff=200); Benzodiazepines Screen,Urine Negative ng/mL (Cutoff=200); Cannabinoid Screen,Urine Negative ng/mL (Cutoff = 50); Cocaine Screen,Urine Negative ng/mL (Cutoff= 300); Opiate Screen,Urine Negative ng/mL (Cutoff=300); Phencyclidine Screen,Urine Negative ng/mL (Cutoff=25)
--- NOTE | 2017-07-08 14:06 | Event Note ---
Date of Encounter: 07/08/17 Time of Encounter: 12:40 S: Pt is very tearful and verbalizes extreme upset over news of demise. Denies contractions, vaginal bleeding, [place]. O: VSS No toco activity A: 26 weeks demise P: Spoke with GONZALEZ Stewart at [facility] regarding recommendation for how to proceed with delivery as patient has been seen by them for her entire . Per ENTRY LEVEL BUSINESS ANALYST instructions, patient is not to be induced until 12-24 hours after her last Lovenox administration which was 2100 last night. She does require telemetry monitoring during and after delivery. She will be discharged from our facility and instructed to arrive to labor and delivery at [facility] this evening. Dr. Bustos aware of POC and agrees.
== END 2017-07-08 14:05 | disposition home or self-care (01) ==
LOC: 1NENULAB
PROVIDERS: ADMIT Obstetrics & Gynecology; ATTEND Obstetrics & Gynecology